=== PATIENT | male | born 1955 | race Caucasian/White ===

== ENCOUNTER 2021-12-29 22:12 | Emergency (ER) | payer MEDICARE, BC, SELFPAY ==
[2021-12-29] VITALS (18 sets, daily range): BP systolic 112–206; BP diastolic 80–135; PULSE 141–174; RESP 18; TEMP 36.9; O2SAT 93–95; BMI 42.3
[2021-12-29] MEDS: 0.9 % SODIUM CHLORIDE 1000 ml 1,000 ML IV (22:40)
--- NOTE | 2021-12-29 22:50 | ED.CHESTPAIN ---
HPI - Chest Pain General Chief Complaint: Chest Pain Stated Complaint: Chest pain, possible AFIB/flutter Time Seen by Provider: 12/29/21 22:49 History of Present Illness HPI narrative: Nurses bring me in to see Mr. Mercado more urgently due to discomfort. 66-year-old man presenting here with spouse with concern of chest pain and rapid heart rate. Pain is right in the middle of his chest. He is not short of breath. History of atrial fibrillation and a flutter; 4 RF ablations and 19 cardioversions. Since last ablation has been AFib free. This was in 2012. He is no longer on anticoagulation. Only on low-dose metoprolol for rate control he says. Had a couple glasses of wine last night but that would not be unusual. Got up about an hour and a half ago to let up the dog and noted that ?something is not right?. He is quite certain that he was not in atrial fibrillation or flutter prior to this time. Historically recalls good deal of pain typically when his heart rate goes above 140. Was in usual state of health before this began. Medical Problems: SP Ablation of Atrial Fibrillation Anti Coagulation Therapy SP Ablation of A. fib March 2013 Morbid Obesity OBSTRUCTIVE SLEEP APNEA (ADULT) (PEDIATRIC) Seasonal Allergies Atrial fibrillation Health care directive on file Health Care Directive completed on 12/06/16. Reviewed for scanning to medical record on 05/07/19. Osteoarthritis of right knee Encounter for laboratory testing for COVID-19 virus Conductive hearing loss in right ear Follow up Ear problem Hearing problem Surgical Problems: Status post total right knee replacement Status post total left knee replacement Related Data Home Medications Medication Instructions Recorded Confirmed albuterol sulfate 90 mcg/actuation inhalation 12/29/21 aerosol inhaler aspirin 81 mg capsule 81 mg PO DAILY 12/29/21 12/29/21 atorvastatin 10 mg tablet mg 12/29/21 losartan 50 mg tablet mg 12/29/21 montelukast 10 mg tablet mg 12/29/21 omeprazole 40 mg capsule,delayed mg 12/29/21 release Previous Rx's Medication Instructions Recorded apixaban 5 mg tablet 5 mg PO BID post-procedural #60 12/30/21 tabs metoprolol succinate 25 mg 25 mg PO DAILY rate control #30 12/30/21 tablet,extended release 24 hr tabs Allergies Allergy/AdvReac Type Severity Reaction Status Date / Time No Known Drug Allergies Allergy Verified 12/29/21 22:47 Review of Systems Status of ROS Reports: 10 or more systems reviewed and unremarkable except as noted in History and below PFSH PFSH Social History Smoking Status: Never smoker How often do you have a drink containing alcohol: 4 or more times a week How many standard drinks containing alcohol do you have on a typical day: 1 or 2 How often do you have six or more drinks on one occasion: Never AUDIT-C Alcohol total score: 4 Non-prescribed substance use: denies use Exam Narrative Exam Narrative: Is pleasant. Does seem uncomfortable. Winces at times. Splinting just a little bit in apparent discomfort. Cranial nerves 2-12 intact. Otherwise speaking easily. Oropharynx is a little sticky. Full in the posterior oropharynx. Lungs are clear. The chest pain is not reproducible. Skin is warm and dry. Mild lower extremity edema. Cardiovascular quite tachycardic. Irregularly irregular. Abdomen is overweight soft and nontender. Extremities with trace lower extremity dependent edema. Well perfused peripherally moving all extremities without difficulty. Initial EKG is at 169. Looks to be AFib with RVR. At this rate there is ST depression in the anterior leads. Const Vital Signs, click to edit/add: Vital Signs - 24 hr 12/29/21 22:26 12/29/21 22:30 12/29/21 23:19 Temperature 98.4 F Pulse Rate 141 H Pulse Rate [Left Pulse Oximeter] 168 H Respiratory Rate 18 Blood Pressure 136/90 H Blood Pressure [Left Upper Arm] 206/135 H Pulse Oximetry 95 95 94 Oxygen Delivery Method Room Air 12/29/21 23:20 12/29/21 23:22 12/29/21 23:25 Temperature Pulse Rate 159 H 166 H 163 H Pulse Rate [Left Pulse Oximeter] Respiratory Rate Blood Pressure 132/90 H Blood Pressure [Left Upper Arm] Pulse Oximetry 93 93 93 Oxygen Delivery Method 12/29/21 23:27 12/29/21 23:30 12/29/21 23:31 Temperature Pulse Rate 166 H 170 H Pulse Rate [Left Pulse Oximeter] Respiratory Rate Blood Pressure 121/89 127/97 H Blood Pressure [Left Upper Arm] Pulse Oximetry 93 94 93 Oxygen Delivery Method 12/29/21 23:35 12/29/21 23:37 12/29/21 23:40 Temperature Pulse Rate 168 H 174 H 165 H Pulse Rate [Left Pulse Oximeter] Respiratory Rate Blood Pressure 163/80 H Blood Pressure [Left Upper Arm] Pulse Oximetry 95 94 93 Oxygen Delivery Method 12/29/21 23:42 12/29/21 23:45 12/29/21 23:47 Temperature Pulse Rate 173 H 170 H 163 H Pulse Rate [Left Pulse Oximeter] Respiratory Rate Blood Pressure 119/97 H 112/100 H Blood Pressure [Left Upper Arm] Pulse Oximetry 93 94 94 Oxygen Delivery Method 12/29/21 23:50 12/29/21 23:55 12/29/21 23:56 Temperature Pulse Rate 149 H Pulse Rate [Left Pulse Oximeter] Respiratory Rate Blood Pressure 128/101 H Blood Pressure [Left Upper Arm] Pulse Oximetry 94 93 94 Oxygen Delivery Method 12/30/21 00:00 12/30/21 00:02 12/30/21 00:05 Temperature Pulse Rate 148 H 154 H 144 H Pulse Rate [Left Pulse Oximeter] Respiratory Rate Blood Pressure 107/86 Blood Pressure [Left Upper Arm] Pulse Oximetry 93 93 93 Oxygen Delivery Method 12/30/21 00:06 12/30/21 00:10 12/30/21 00:12 Temperature Pulse Rate 151 H 153 H 151 H Pulse Rate [Left Pulse Oximeter] Respiratory Rate Blood Pressure 122/85 118/97 H Blood Pressure [Left Upper Arm] Pulse Oximetry 93 93 93 Oxygen Delivery Method 12/30/21 00:15 12/30/21 00:17 12/30/21 00:20 Temperature Pulse Rate 158 H 153 H 151 H Pulse Rate [Left Pulse Oximeter] Respiratory Rate Blood Pressure 119/107 H Blood Pressure [Left Upper Arm] Pulse Oximetry 93 94 92 Oxygen Delivery Method 12/30/21 00:22 12/30/21 00:25 12/30/21 00:27 Temperature Pulse Rate 158 H 163 H 153 H Pulse Rate [Left Pulse Oximeter] Respiratory Rate Blood Pressure 125/91 H 113/86 Blood Pressure [Left Upper Arm] Pulse Oximetry 93 95 95 Oxygen Delivery Method 12/30/21 00:30 12/30/21 00:31 12/30/21 00:35 Temperature Pulse Rate 155 H 154 H 161 H Pulse Rate [Left Pulse Oximeter] Respiratory Rate Blood Pressure 132/112 H Blood Pressure [Left Upper Arm] Pulse Oximetry 95 94 92 Oxygen Delivery Method 12/30/21 00:36 12/30/21 00:40 12/30/21 00:41 Temperature Pulse Rate 155 H 120 H 137 H Pulse Rate [Left Pulse Oximeter] Respiratory Rate Blood Pressure 106/79 112/79 Blood Pressure [Left Upper Arm] Pulse Oximetry 91 93 91 Oxygen Delivery Method 12/30/21 00:45 12/30/21 00:46 12/30/21 00:50 Temperature Pulse Rate 151 H 126 H 130 H Pulse Rate [Left Pulse Oximeter] Respiratory Rate Blood Pressure 122/87 Blood Pressure [Left Upper Arm] Pulse Oximetry 94 93 94 Oxygen Delivery Method 12/30/21 00:52 12/30/21 00:55 12/30/21 00:56 Temperature Pulse Rate 144 H 134 H 135 H Pulse Rate [Left Pulse Oximeter] Respiratory Rate Blood Pressure 121/86 103/84 Blood Pressure [Left Upper Arm] Pulse Oximetry 94 94 94 Oxygen Delivery Method 12/30/21 01:00 12/30/21 01:01 12/30/21 01:05 Temperature Pulse Rate 149 H 150 H 145 H Pulse Rate [Left Pulse Oximeter] Respiratory Rate Blood Pressure 127/82 Blood Pressure [Left Upper Arm] Pulse Oximetry 93 93 94 Oxygen Delivery Method 12/30/21 01:06 12/30/21 01:10 12/30/21 01:21 Temperature Pulse Rate 125 H 137 H 143 H Pulse Rate [Left Pulse Oximeter] Respiratory Rate Blood Pressure 108/85 Blood Pressure [Left Upper Arm] Pulse Oximetry 93 92 94 Oxygen Delivery Method 12/30/21 01:22 12/30/21 01:25 12/30/21 01:26 Temperature Pulse Rate 151 H 135 H 143 H Pulse Rate [Left Pulse Oximeter] Respiratory Rate Blood Pressure 115/103 H 99/86 Blood Pressure [Left Upper Arm] Pulse Oximetry 94 93 93 Oxygen Delivery Method 12/30/21 01:30 12/30/21 01:32 12/30/21 01:33 Temperature Pulse Rate 136 H 128 H 136 H Pulse Rate [Left Pulse Oximeter] Respiratory Rate Blood Pressure 110/67 Blood Pressure [Left Upper Arm] Pulse Oximetry 94 95 94 Oxygen Delivery Method 12/30/21 01:35 12/30/21 01:38 12/30/21 01:40 Temperature Pulse Rate 122 H 125 H 114 H Pulse Rate [Left Pulse Oximeter] Respiratory Rate Blood Pressure 117/87 Blood Pressure [Left Upper Arm] Pulse Oximetry 95 96 95 Oxygen Delivery Method 12/30/21 01:41 12/30/21 01:51 12/30/21 01:55 Temperature Pulse Rate 136 H 144 H 147 H Pulse Rate [Left Pulse Oximeter] Respiratory Rate 12 Blood Pressure 112/92 H Blood Pressure [Left Upper Arm] Pulse Oximetry 95 94 94 Oxygen Delivery Method 12/30/21 01:57 12/30/21 02:00 12/30/21 02:01 Temperature Pulse Rate 143 H 146 H 153 H Pulse Rate [Left Pulse Oximeter] Respiratory Rate 14 17 21 Blood Pressure 114/89 114/88 Blood Pressure [Left Upper Arm] Pulse Oximetry 94 94 94 Oxygen Delivery Method 12/30/21 02:05 12/30/21 02:08 12/30/21 02:10 Temperature Pulse Rate 137 H 161 H 150 H Pulse Rate [Left Pulse Oximeter] Respiratory Rate 21 19 13 Blood Pressure 134/91 H Blood Pressure [Left Upper Arm] Pulse Oximetry 95 95 95 Oxygen Delivery Method 12/30/21 02:12 12/30/21 02:15 12/30/21 02:17 Temperature Pulse Rate 153 H 144 H Pulse Rate [Left Pulse Oximeter] Respiratory Rate 16 16 17 Blood Pressure 155/118 H 124/105 H Blood Pressure [Left Upper Arm] Pulse Oximetry 94 93 Oxygen Delivery Method 12/30/21 02:20 12/30/21 02:22 12/30/21 02:25 Temperature Pulse Rate 82 76 73 Pulse Rate [Left Pulse Oximeter] Respiratory Rate 20 20 16 Blood Pressure 142/84 H Blood Pressure [Left Upper Arm] Pulse Oximetry 94 94 93 Oxygen Delivery Method 12/30/21 02:27 12/30/21 02:30 12/30/21 02:32 Temperature Pulse Rate 72 69 67 Pulse Rate [Left Pulse Oximeter] Respiratory Rate 24 21 15 Blood Pressure 140/82 H 134/74 Blood Pressure [Left Upper Arm] Pulse Oximetry 94 93 93 Oxygen Delivery Method 12/30/21 02:35 12/30/21 02:37 12/30/21 02:40 Temperature Pulse Rate 65 66 67 Pulse Rate [Left Pulse Oximeter] Respiratory Rate 17 18 18 Blood Pressure 119/70 Blood Pressure [Left Upper Arm] Pulse Oximetry 93 92 93 Oxygen Delivery Method 12/30/21 02:41 12/30/21 02:42 12/30/21 02:45 Temperature Pulse Rate 66 64 64 Pulse Rate [Left Pulse Oximeter] Respiratory Rate 19 20 21 Blood Pressure 131/77 Blood Pressure [Left Upper Arm] Pulse Oximetry 92 92 92 Oxygen Delivery Method 12/30/21 02:47 12/30/21 02:50 12/30/21 02:51 Temperature Pulse Rate 65 65 68 Pulse Rate [Left Pulse Oximeter] Respiratory Rate 19 19 20 Blood Pressure 119/72 128/73 Blood Pressure [Left Upper Arm] Pulse Oximetry 93 93 94 Oxygen Delivery Method 12/30/21 02:55 12/30/21 02:57 12/30/21 03:00 Temperature Pulse Rate 68 66 65 Pulse Rate [Left Pulse Oximeter] Respiratory Rate 15 18 18 Blood Pressure 128/74 Blood Pressure [Left Upper Arm] Pulse Oximetry 94 93 94 Oxygen Delivery Method 12/30/21 03:02 12/30/21 03:05 12/30/21 03:07 Temperature Pulse Rate 64 64 65 Pulse Rate [Left Pulse Oximeter] Respiratory Rate 19 19 17 Blood Pressure 120/71 111/71 Blood Pressure [Left Upper Arm] Pulse Oximetry 93 93 94 Oxygen Delivery Method 12/30/21 03:10 12/30/21 03:12 12/30/21 03:15 Temperature Pulse Rate 64 64 63 Pulse Rate [Left Pulse Oximeter] Respiratory Rate 20 18 20 Blood Pressure 128/69 Blood Pressure [Left Upper Arm] Pulse Oximetry 93 95 94 Oxygen Delivery Method 12/30/21 03:17 12/30/21 03:20 12/30/21 03:22 Temperature Pulse Rate 62 62 63 Pulse Rate [Left Pulse Oximeter] Respiratory Rate 21 18 19 Blood Pressure 115/65 127/72 Blood Pressure [Left Upper Arm] Pulse Oximetry 94 94 93 Oxygen Delivery Method 12/30/21 03:25 12/30/21 03:27 12/30/21 03:30 Temperature Pulse Rate 61 60 61 Pulse Rate [Left Pulse Oximeter] Respiratory Rate 20 19 18 Blood Pressure 125/69 Blood Pressure [Left Upper Arm] Pulse Oximetry 94 93 95 Oxygen Delivery Method 12/30/21 03:32 12/30/21 03:35 12/30/21 03:36 Temperature Pulse Rate 63 64 65 Pulse Rate [Left Pulse Oximeter] Respiratory Rate 14 21 Blood Pressure 123/65 137/80 Blood Pressure [Left Upper Arm] Pulse Oximetry 95 96 96 Oxygen Delivery Method 12/30/21 03:40 12/30/21 03:42 12/30/21 03:45 Temperature Pulse Rate 65 64 65 Pulse Rate [Left Pulse Oximeter] Respiratory Rate 17 21 24 Blood Pressure 144/77 H Blood Pressure [Left Upper Arm] Pulse Oximetry 96 96 96 Oxygen Delivery Method 12/30/21 03:47 12/30/21 03:50 12/30/21 03:52 Temperature Pulse Rate 66 68 66 Pulse Rate [Left Pulse Oximeter] Respiratory Rate 21 21 18 Blood Pressure 133/82 140/84 H Blood Pressure [Left Upper Arm] Pulse Oximetry 96 96 96 Oxygen Delivery Method 12/30/21 03:55 12/30/21 03:57 12/30/21 04:00 Temperature Pulse Rate 63 62 61 Pulse Rate [Left Pulse Oximeter] Respiratory Rate 18 23 25 H Blood Pressure 127/67 Blood Pressure [Left Upper Arm] Pulse Oximetry 96 95 95 Oxygen Delivery Method 12/30/21 04:02 12/30/21 04:05 12/30/21 04:07 Temperature Pulse Rate 62 61 57 L Pulse Rate [Left Pulse Oximeter] Respiratory Rate 24 21 22 Blood Pressure 130/81 126/69 Blood Pressure [Left Upper Arm] Pulse Oximetry 94 95 95 Oxygen Delivery Method 12/30/21 04:10 12/30/21 04:12 Temperature Pulse Rate 58 L 59 L Pulse Rate [Left Pulse Oximeter] Respiratory Rate 20 15 Blood Pressure 130/74 Blood Pressure [Left Upper Arm] Pulse Oximetry 95 96 Oxygen Delivery Method Documenting provider has reviewed patient's vital signs: yes Course Course Hospital Course: Will be initiating fluids and rate control. Morphine available if needed for further pain management. Monitoring on oximetry and ekg monitor. Reevaluation(s) Reevaluation #1: Heart rate discomfort not improved with initial fluid bolus and IV diltiazem. Morphine does little to alleviate his discomfort. Ordering for 50 mcg of fentanyl. Reevaluation #2: Pain much improved though still present after fentanyl. Is appreciably sleepy. Heart rate is still rather tachycardic. Ordering metoprolol as well. Vital Signs Vital signs: Initial Vital Signs Temperature 98.4 F 12/29/21 22:26 Temperature Source Temporal Artery Scan 12/29/21 22:26 Pulse Rate 168 H 12/29/21 22:26 Respiratory Rate 18 09/14/22 22:26 Blood Pressure 206/135 H 12/29/21 22:26 Blood Pressure Mean 158 12/29/21 22:26 Blood Pressure Position Supine 12/29/21 22:26 Pulse Oximetry 95 12/29/21 22:26 Oxygen Delivery Method 12/29/21 22:26 Vital Signs Temperature 98.4 F 12/29/21 22:26 Pulse Rate 168 H 12/29/21 22:26 Respiratory Rate 18 12/29/21 22:26 Blood Pressure 206/135 H 12/29/21 22:26 Pulse Oximetry 95 12/29/21 22:26 Oxygen Delivery Method 12/29/21 22:26 Temperature 98.4 F 12/29/21 22:26 Pulse Rate 59 L 12/30/21 04:12 Respiratory Rate 15 12/30/21 04:12 Blood Pressure 130/74 12/30/21 04:12 Pulse Oximetry 96 12/30/21 04:12 Oxygen Delivery Method 12/29/21 22:26 MDM - Chest Pain MDM Narrative Medical decision making narrative: AFib with RVR and related chest pain. EKG with some ischemic depression in the anterior leads Attempting fluids and rate control. Likely will need electrical cardioversion. See if with rate control and fluids morphine all to relieve some discomfort. Replacing magnesium noting low-normal in anticipation of cardioversion. And then contacting anesthesia once this infusion would be nearly complete for assistance with sedation at this time of night. Chemistry is otherwise with elevated blood sugar. Normal hemoglobin and proBNP. Received IV fluids, attempts at rate control with diltiazem and metoprolol have not affected heart rate noticeably. Without fentanyl I would suspect still in good deal of discomfort. At rest oxygen saturations do dip below 90 % I think representing combination of fentanyl and sleep apnea. Anesthesia not able to assist with sedation at this point as Mr. Mercado had some food ingestion now about 3 hours ago; requiring 8 hours without ingestion. Suggestion of blood bank laboratory technologist level of sedation and synchronized cardioversion. Postponing conversion another 5 hours for cardioversion in this case I think is really not ideal. Consulting organizational policies and/though am anticipating moderate sedation for cardioversion. I am hesitant to give higher doses in setting of sleep apnea. I have discussed anticoagulation with Mr Mercado. Only a few hours of atrial fibrillation; did not anticoagulate preprocedure. Does take 81 mg of aspirin daily. Will be providing singular post-procedural dose of Apixaban and clarify with cardiology for further recommendations yet this morning. On Chads Vasc 2 scores 2. Medical Records Data Attestation: I reviewed the patient's medical records. Lab Data Attestation: I reviewed the patient's lab results. Labs: Lab Results 12/29/21 12/29/21 Range/Units 22:38 22:38 Hgb 15.8 (13.5-17.5) gm/dL Sodium 143 (135-149) mmol/L Potassium 3.9 (3.6-5.1) mmol/L Chloride 105 (96-114) mmol/L Carbon Dioxide 19 L (20-32) mmol/L BUN 17 (7-30) mg/dL Creatinine 0.9 (0.5-1.5) mg/dL Estimated Creat Clear 73.00 Estimated GFR 93 ml/min Glucose 175 H (60-115) mg/dL Calcium 9.1 (8.4-10.6) mg/dL Magnesium 1.9 (1.5-2.6) mg/dL NT-Pro-B Natriuret Pep 59 (0-125) PG/mL ECG Data Attestation: I personally reviewed and interpreted this ECG as follows: (1. AFib with RVR. ST depression in anterior leads. 2. Following synced cardioversion normal sinus rate of 69. No ischemic changes evident. ) Critical Care Time Critical Care Time Critical Care Time: Yes Attestation: The patient required my highest level preparedness to intervene emergently and I personally spent this critical care time directly and personally managing the patient. This critical care time included: Obtaining a history; Examining the patient; Pulse oximetry; Ordering and reviewing of studies; Arranging urgent treatment with development of a management plan; Evaluation of patients response to treatment; Frequent reassessment discussions with other providers. This critical care time was performed to assess and manage the high probability of imminent life-threatening deterioration that could result in multiorgan failure. It was exclusive of separate billable procedures and treating other patients and teaching time. Total Critical Care Time in Minutes: 80 Discharge Plan Discharge Clinical Impression: Chest pain, Atrial fibrillation with rapid ventricular response Patient Disposition: Home w/ Parent or Adult Condition: Improved Additional Instructions: Stay well hydrated. Return for recurrence of symptoms. I would check in with [facility] during business hours today; probably time for a follow-up. I also will call them to confirm treatment recommendations and then relay information to you. I would take another dose of your metoprolol tartrate this morning sometime between when you get back home and breakfast; take this if your pulse is 65 or over. Been a pleasure. Prescriptions: New metoprolol succinate 25 mg tablet extended release 24 hr 25 mg PO DAILY Qty: 30 0RF apixaban 5 mg tablet 5 mg PO BID Qty: 60 0RF Held aspirin 81 mg capsule 81 mg PO DAILY Hold Instructions: Resume on 01/29/22. hold while taking apixaban and pending cardiology recommendations Discontinued metoprolol tartrate 25 mg tablet No Action losartan 50 mg tablet Label Comments: TAKE 1 TABLET BY MOUTH EVERY DAY AT BEDTIME atorvastatin 10 mg tablet Label Comments: TAKE 1 TABLET BY MOUTH DAILY AT BEDTIME. omeprazole 40 mg capsule,delayed release(DR/EC) Label Comments: TAKE 1 CAPSULE BY MOUTH EVERY DAY montelukast 10 mg tablet Label Comments: TAKE 1 TABLET BY MOUTH EVERY DAY AT BEDTIME NEEDED albuterol sulfate 90 mcg/actuation HFA aerosol inhaler INHALATION Label Comments: INHALE 2 PUFFS EVERY 4 HOURS NEEDED Follow Up/Referrals: eBltran Tran MD [Primary Care Provider] - Stand Alone Forms: [employer] Info Instructions Discharge Comment: Able to follow up with Cardiology later in the morning who are indeed recommending continuing with apixaban for 4 weeks. Discontinuing low-dose aspirin at this point. And changing to sustained release metoprolol. Contacting Mr. Mercado with these recommendations. Procedures Additional Procedures Procedure name: Electrical cardioversion Pre procedure diagnosis: Atrial fibrillation with rapid ventricular response Post procedure diagnosis: Atrial fibrillation with rapid ventricular response Written consent by: patient Site marking: not applicable Verification/time out: correct patient and correct procedure Estimated blood loss (if any): none Conclusion: patient tolerated procedure (see below) Additional comments: Assisted by Nursing. Informed consent obtained. Given initially 1 mg and then another 0.5 mg of Versed as well as 25 mcg followed by another 25 mcg of fentanyl. Mr. Velarde appears to be much more sleepy closing his eyes. Synchronized 200 joules and shock delivered. Clearly he felt this ?stinging?; tolerated the procedure well. Rhythm has returned to normal sinus. EKG confirming normal sinus rhythm at a rate of 69 without ischemic changes. Continued monitoring. Finally fully alert and comfortable. Looks quite improved. Rhythm holding. Moderate Sedation Pre Sedation Procedure Procedure date: 12/30/21 Procedure to be performed: Moderate sedation and electrical cardioversion Pre-procedure diagnosis: Atrial fibrillation with rapid ventricular response Indication for procedure: Chest pain and EKG changes, atrial fibrillation with RVR H&P Attestation An H&P has been documented and completed during this visit: Yes Pre Sedation Exam ASA Class: II (Hypertension, sleep apnea, reactive airway) General appearance: alert and in distress (Appears uncomfortable. Improved after pain medication.) HEENT: PERRL Difficulty swallowing: No Airway status: opens mouth no difficulty Cardiovascular: other (Irregularly irregular and tachycardic) Respiratory: clear to auscultation Nursing documentation reviewed: Yes Medications used: Fentanyl and Midazolam Post Sedation Exam Post-sedation procedure comments: 200 J delivered. Tolerated well though did report feeling the shock. Post-sedation attestation: I administered moderate sedation throughout procedure, independent trained observer pushed medications at my direction and patient's level of consciousness and physiological status monitored
[2021-12-29] MEDS: MORPHINE 4 MG/ML INJ IVP (22:58)
[2021-12-29 23:01] LABS: Hemoglobin* 15.8 gm/dL (13.5-17.5)
[2021-12-29] MEDS: dilTIAZem 5 MG/ML inj 25 MG IVP (23:01)
[2021-12-29 23:03] LABS: Chloride* 105 mmol/L (96-114)
[2021-12-29 23:04] LABS: Potassium* 3.9 mmol/L (3.6-5.1); Sodium* 143 mmol/L (135-149)
[2021-12-29 23:07] LABS: Blood Urea Nitrogen* 17 mg/dL (7-30); Carbon Dioxide* 19 mmol/L (20-32); Creatinine* 0.9 mg/dL (0.5-1.5); Estimated Glomerular Filt Rate 93 ml/min; Glucose* 175 mg/dL (60-115)
[2021-12-29 23:08] LABS: Calcium* 9.1 mg/dL (8.4-10.6); Magnesium* 1.9 mg/dL (1.5-2.6)
[2021-12-29 23:16] LABS: NT Pro B Type NatriureticPept* 59 PG/mL (0-125)
[2021-12-29] MEDS: MAGNESIUM SULFATE 2 GM/50 ML PIGGYBACK IVPB (23:33)
[2021-12-30] VITALS (98 sets, daily range): BP systolic 99–155; BP diastolic 65–118; PULSE 57–163; RESP 12–25; O2SAT 91–96
[2021-12-30] MEDS: fentaNYL 100 MCG/2 ML inj 50 MCG IVP (00:30)
[2021-12-30] MEDS: METOPROLOL TARTRATE 1 MG/ML inj 5 MG IVP (00:31)
[2021-12-30] MEDS: 0.9 % SODIUM CHLORIDE 1000 ml 1,000 ML IV (02:00)
[2021-12-30] MEDS: fentaNYL 100 MCG/2 ML inj 25 MCG IVP ×2 (02:08→02:14)
[2021-12-30] MEDS: MIDAZOLAM HCL 1 MG/ML inj IVP (02:10)
[2021-12-30] MEDS: MIDAZOLAM HCL 1 MG/ML inj 0.5 MG IVP (02:12)
[2021-12-30] MEDS: APIXABAN 5 MG TABLET PO (04:11)
== END 2021-12-30 04:31 | disposition home or self-care (01) ==
PROVIDERS: Emergency Provider Family Medicine; PCP Internal Medicine
DX: I48.20 Chronic atrial fibrillation, unspecified (principal)
CPT/HCPCS: 36415; 80048; 83735; 83880; 85018; 92960; 93005; 94761; 96365; 96375; 96376; 99152; 99284; 99291; 99292; A9270; J2250; J2270; J3010; J3475; J7030

== ENCOUNTER 2022-04-14 23:28 | Emergency (ER) | payer MEDICARE, BC, SELFPAY ==
[2022-04-14 23:33] VITALS: BP 172/139; PULSE 163; RESP 20; TEMP 36.3; O2SAT 98; BMI 41.6
[2022-04-14 23:42] VITALS: BP 172/139
[2022-04-15] VITALS (29 sets, daily range): BP systolic 118–160; BP diastolic 74–122; PULSE 81–167; RESP 10–33; TEMP 36.7; O2SAT 95–98
[2022-04-15] MEDS: PROPOFOL 10 MG/ML INJ 200 MG IVP (00:15)
[2022-04-15] MEDS: 0.9 % SODIUM CHLORIDE 500 ML 500 ML IV (00:15)
[2022-04-15 00:17] LABS: Basophils Absolute Auto 0.03 K/uL (0.00-0.30); Basophils Percent Auto 0.5 % (0.0-3.0); Eosinophils Absolute Auto 0.23 K/uL (0.00-0.50); Eosinophils Percent Auto 4.1 % (0.0-7.0); Hematocrit 45.7 % (37.0-53.0); Hemoglobin* 15.3 gm/dL (13.5-17.5); Immature Granulocytes Abs Auto 0.04 K/uL (0.00-0.30); Immature Granulocytes Pct Auto 0.7 %; Lymphocytes Absolute Auto 1.69 K/uL (0.90-2.90); Lymphocytes Percent Auto 29.9 % (20-44); Mean Corpuscular HGB Conc 34 gm/dL (32-36); Mean Corpuscular Hemoglobin 29 pg (26-34); Mean Corpuscular Volume 86 fL (80-100); Monocytes Percent Auto 11.3 % (0.0-11.0); Neutrophils Absolute Auto 3.02 K/uL (1.7-7.0); Neutrophils Percent Auto 53.5 % (42.0-72.0); Platelet Count* 184 K/uL (140-440); RDW Coefficient of Variation % 13.1 % (11.5-15.5); Red Blood Count 5.31 m/uL (4.30-5.90); White Blood Count* 5.65 K/uL (4.50-11.00)
[2022-04-15 00:18] LABS: Slide Review Reflex No
--- NOTE | 2022-04-15 00:23 | W.ED.CHARTNO ---
ED Chart Note Chart Note Details Date: 04/15/22 Details: Patient is a 66-year-old gentleman that is in with atrial fibrillation with rapid ventricular response and some chest discomfort. Dr. Waller is the primary attending and has asked me to provide anesthesia and airway support well he does a synchronized cardioversion. Patient has been consented on the synchronized cardioversion, the conscious sedation. Appropriate cardiac monitoring, pulse oximetry and supplemental nasal cannula oxygen with capnography were used for monitoring. Appropriate patient was given 150 mg IV propofol fall, had good sedation with that. He had some immediate hypo ventilation that responded with jaw thrust and switching to non-rebreather mask oxygen. This was maintained for few minutes inpatient had spontaneous recovery from his anesthesia. Patient did respond to the 200 joules of synchronized cardioversion with conversion to sinus rhythm, please see Dr. Waller's note for the cardioversion procedure.
[2022-04-15 00:48] LABS: Chloride* 110 mmol/L (96-114); Sodium* 145 mmol/L (135-149)
[2022-04-15 00:49] LABS: Potassium* 3.8 mmol/L (3.6-5.1)
[2022-04-15 00:51] LABS: Creatinine* 0.8 mg/dL (0.5-1.5); Estimated Glomerular Filt Rate 96 ml/min
[2022-04-15 00:52] LABS: Blood Urea Nitrogen* 18 mg/dL (7-30); Calcium* 9.2 mg/dL (8.4-10.6); Carbon Dioxide* 21 mmol/L (20-32); Glucose* 159 mg/dL (60-115)
--- NOTE | 2022-04-15 00:52 | ED.GENADULT ---
HPI - General Adult General Date Seen: 04/15/22 Chief complaint: Chest Pain Stated complaint: Afib Time Seen by Provider: 04/15/22 00:01 Source: patient and family Mode of arrival: wheelchair Limitations: no limitations History of Present Illness HPI narrative: Patient is a 66-year-old male with a long history of atrial fibrillation. He has had for ablation procedures at [place] and 20 cardioversions, most recently in December. He is chronically on aspirin but no other anticoagulation. Takes Toprol-XL 25 mg daily for rate control and losartan 50 mg daily for hypertension. Tonight at about 10:00 p.m. he felt himself flip into atrial fibrillation with a rapid rate. He began having some chest pain and shortness of breath and presents emergency department within about 90 minutes. He last ate 4 hours ago. His last cardioversion was done with fentanyl and Versed and he remembers the entire thing in his certainly hoping that we have better anesthesia to offer him this time. Related Data Home Medications Medication Instructions Recorded Confirmed albuterol sulfate 90 mcg/actuation inhalation 12/29/21 01/19/22 aerosol inhaler montelukast 10 mg tablet mg 12/29/21 01/19/22 Previous Rx's Medication Instructions Recorded atorvastatin 10 mg tablet 10 mg PO .HS Hyperlipidemia #90 01/19/22 tabs losartan 50 mg tablet 50 mg PO QDAY Hypertension #90 tabs 01/19/22 metoprolol succinate 25 mg 25 mg PO DAILY rate control #90 01/19/22 tablet,extended release 24 hr tabs omeprazole 40 mg capsule,delayed 40 mg PO QDAY GERD #90 caps 01/19/22 release Allergies Allergy/AdvReac Type Severity Reaction Status Date / Time No Known Drug Allergies Allergy Verified 04/14/22 23:52 Review of Systems Narrative: Review of systems is outlined above otherwise noted to be negative. He states that he can always tell when he goes in atrial fibrillation. He was on Eliquis for a month after his last cardioversion and is now just back on aspirin again. He has not seen his quality assurance director in about two years. PCP is Dr. Tran. [facility] Medical History (Updated 04/15/22 @ 00:59 by Rafael Waller MD) GERD (gastroesophageal reflux disease) Hypertension Surgical History (Updated 01/18/22 @ 17:39 by Yany Dye) Status post total left knee replacement Status post total right knee replacement Social History Smoking Status: Never smoker Do you use any of these nicotine containing products: None Second hand tobacco smoke exposure: No How often do you have a drink containing alcohol: 4 or more times a week How many standard drinks containing alcohol do you have on a typical day: 1 or 2 How often do you have six or more drinks on one occasion: Never AUDIT-C Alcohol total score: 4 Non-prescribed substance use: denies use Exam Narrative: Exam Narrative: Vitals noted. HEENT: Conjunctiva clear. Neck is supple without adenopathy, thyromegaly, carotid bruit. No jugular venous distension. Lungs: Clear to auscultation in all otero. No wheezes, rales, rhonchi. Heart: Heart is irregularly irregular and tachycardic. No murmur. No chest wall tenderness. Abdomen: Soft and nontender. No guarding, rigidity, rebound. Bowel sounds are normal. No palpable masses. Extremities: Trace ankle edema. Good distal pulses. Skin: No abnormalities noted of the exposed skin. Neurologic: Awake, alert, fully oriented. Neurologic exam is nonfocal. Const: Vital Signs, click to edit/add: Vital Signs - 24 hr 04/14/22 23:33 04/14/22 23:42 04/15/22 00:10 Temperature 97.3 F L Pulse Rate Pulse Rate [Pulse Oximeter] 163 H Respiratory Rate 20 Blood Pressure 172/139 H Blood Pressure [Le ft Upper Arm] 172/139 H Pulse Oximetry 98 98 Oxygen Delivery Me thod Room Air Oxygen Flow Rate 04/15/22 00:12 04/15/22 00:11 04/15/22 00:15 Temperature Pulse Rate 152 H Pulse Rate [Pulse Oximeter] Respiratory Rate Blood Pressure 144/122 H Blood Pressure [Le ft Upper Arm] Pulse Oximetry 95 96 Oxygen Delivery Me thod Nasal Cannula Nasal Cannula Oxygen Flow Rate 2 4 04/15/22 00:17 04/15/22 00:20 04/15/22 00:22 Temperature Pulse Rate 167 H 95 93 Pulse Rate [Pulse Oximeter] Respiratory Rate 24 27 H 21 Blood Pressure 160/109 H 143/82 H Blood Pressure [Le ft Upper Arm] Pulse Oximetry 97 95 98 Oxygen Delivery Me thod Oxygen Flow Rate 04/15/22 00:25 04/15/22 00:27 04/15/22 00:28 Temperature Pulse Rate 90 90 87 Pulse Rate [Pulse Oximeter] Respiratory Rate 21 33 H 14 Blood Pressure 125/77 Blood Pressure [Le ft Upper Arm] Pulse Oximetry 98 96 96 Oxygen Delivery Me thod Oxygen Flow Rate 04/15/22 00:30 04/15/22 00:31 04/15/22 00:35 Temperature Pulse Rate 85 86 85 Pulse Rate [Pulse Oximeter] Respiratory Rate 19 12 20 Blood Pressure 123/77 Blood Pressure [Le ft Upper Arm] Pulse Oximetry 95 96 95 Oxygen Delivery Me thod Oxygen Flow Rate 04/15/22 00:36 04/15/22 00:40 04/15/22 00:42 Temperature Pulse Rate 86 85 84 Pulse Rate [Pulse Oximeter] Respiratory Rate 10 L 21 25 H Blood Pressure 132/77 125/78 Blood Pressure [Le ft Upper Arm] Pulse Oximetry 96 95 97 Oxygen Delivery Me thod Oxygen Flow Rate 04/15/22 00:49 04/15/22 00:43 04/15/22 00:45 Temperature 98.0 F Pulse Rate 82 83 Pulse Rate [Pulse Oximeter] 84 Respiratory Rate 19 13 17 Blood Pressure 125/74 132/74 Blood Pressure [Le ft Upper Arm] 128/77 Pulse Oximetry 96 96 95 Oxygen Delivery Me thod Nasal Cannula Oxygen Flow Rate 2 04/15/22 00:47 04/15/22 01:24 04/15/22 00:48 Temperature 98.0 F Pulse Rate 81 81 Pulse Rate [Pulse Oximeter] 84 Respiratory Rate 19 16 18 Blood Pressure 128/77 145/78 H Blood Pressure [Le ft Upper Arm] 128/77 Pulse Oximetry 96 97 95 Oxygen Delivery Me thod Room Air Oxygen Flow Rate 04/15/22 00:52 04/15/22 00:57 04/15/22 01:01 Temperature Pulse Rate 83 83 84 Pulse Rate [Pulse Oximeter] Respiratory Rate 17 22 19 Blood Pressure 138/76 118/79 130/87 Blood Pressure [Le ft Upper Arm] Pulse Oximetry 96 95 97 Oxygen Delivery Me thod Oxygen Flow Rate 04/15/22 01:07 04/15/22 01:12 04/15/22 01:17 Temperature Pulse Rate 81 86 82 Pulse Rate [Pulse Oximeter] Respiratory Rate 21 24 12 Blood Pressure 134/80 146/86 H 144/78 H Blood Pressure [Le ft Upper Arm] Pulse Oximetry 96 97 97 Oxygen Delivery Me thod Oxygen Flow Rate 04/15/22 01:27 Temperature 98.0 F Pulse Rate Pulse Rate [Pulse Oximeter] 84 Respiratory Rate 16 Blood Pressure Blood Pressure [Le ft Upper Arm] 128/77 Pulse Oximetry Oxygen Delivery Me thod Oxygen Flow Rate Course Course Hospital Course: Initial EKG shows atrial fibrillation with a rate of 157. There are diffuse [address] depressions. IV is established and 500 mL of saline his given. Oxygen is applied. He is felt to be unstable because he is currently having chest pains and shortness of breath and we opted to proceed with emergent cardioversion. It was change of shift and Dr. Nj was still here and agreed to stay and provide anesthesia for his synchronized cardioversion procedure. Following informed consent oxygen is applied by nasal cannula and cardioversion patches are placed anteriorly and posteriorly. He is given 150 mg of propofol. Following excellent anesthesia he received 200 joules via synchronized cardioversion and return to normal sinus rhythm with a rate of 95. His ST depressions resolved. He has known obstructive sleep apnea and did require jaw thrust and oxygen for short time. He is observed for over an hour postprocedure and remained in sinus rhythm that was rate controlled. Labs including CBC, BMP, troponin were all unremarkable. His chest pain shortness of breath completely resolved. Vital Signs Vital signs: Initial Vital Signs Temperature 97.3 F L 04/14/22 23:33 Temperature Source Temporal Artery Scan 04/14/22 23:33 Pulse Rate 163 H 04/14/22 23:33 Pulse Rhythm 04/14/22 23:33 Respiratory Rate 20 04/14/22 23:33 Blood Pressure 172/139 H 04/14/22 23:33 Blood Pressure Mean 150 04/14/22 23:33 Blood Pressure Position Supine 04/14/22 23:33 Pulse Oximetry 98 04/14/22 23:33 Oxygen Delivery Method 04/14/22 23:33 Vital Signs Temperature 97.3 F L 04/14/22 23:33 Pulse Rate 163 H 04/14/22 23:33 Respiratory Rate 20 04/14/22 23:33 Blood Pressure 172/139 H 04/14/22 23:33 Pulse Oximetry 98 04/14/22 23:33 Oxygen Delivery Method 04/14/22 23:33 Temperature 98.0 F 04/15/22 01:27 Pulse Rate 84 12/30/22 01:27 Respiratory Rate 16 04/15/22 01:27 Blood Pressure 128/77 04/15/22 01:27 Pulse Oximetry 97 04/15/22 01:24 Oxygen Delivery Method 04/15/22 01:24 Oxygen Flow Rate 2 04/15/22 00:49 Medical Decision Making Lab Data Labs: Lab Results 04/15/22 04/15/22 04/15/22 Range/Units 00:00 00:00 00:00 WBC 5.65 (4.50-11.00) K/uL RBC 5.31 (4.30-5.90) m/uL Hgb 15.3 (13.5-17.5) gm/dL Hct 45.7 (37.0-53.0) % MCV 86 (80-100) fL MCH 29 (26-34) pg MCHC 34 (32-36) gm/dL RDW Coeff of Carlos 13.1 (11.5-15.5) % Plt Count 184 (140-440) K/uL Neut % (Auto) 53.5 (42.0-72.0) % Lymph % (Auto) 29.9 (20-44) % Lamb % (Auto) 11.3 H (0.0-11.0) % Eos % (Auto) 4.1 (0.0-7.0) % Baso % (Auto) 0.5 (0.0-3.0) % Neut # (Auto) 3.02 (1.7-7.0) K/uL Lymph # (Auto) 1.69 (0.90-2.90) K/uL Lamb # (Auto) 0.60 (0.00-0.90) K/UL Eos # (Auto) 0.23 (0.00-0.50) K/uL Baso # (Auto) 0.03 (0.00-0.30) K/uL Sodium 145 (135-149) mmol/L Potassium 3.8 (3.6-5.1) mmol/L Chloride 110 (96-114) mmol/L Carbon Dioxide 21 (20-32) mmol/L BUN 18 (7-30) mg/dL Creatinine 0.8 (0.5-1.5) mg/dL Estimated Creat Clear 73.00 Estimated GFR 96 ml/min Glucose 159 H (60-115) mg/dL Calcium 9.2 (8.4-10.6) mg/dL Troponin I < 0.01 L (0.01-0.04) ng/mL POC Troponin I 0.00 L (0.01-0.04) ng/ml Discharge Plan Discharge Clinical Impression: Atrial fibrillation with RVR Patient Disposition: Home, Self-Care Condition: Improved Additional Instructions: Continue current meds. Follow up with Dr Tran in 3-5 days. Schedule appt with your Freight Tallier. Return to ED for recurrent problems. Prescriptions: No Action metoprolol succinate 25 mg tablet extended release 24 hr 25 mg PO DAILY Qty: 90 3RF atorvastatin 10 mg tablet 10 mg PO .HS Qty: 90 4RF Label Comments: TAKE 1 TABLET BY MOUTH DAILY AT BEDTIME. omeprazole 40 mg capsule,delayed release(DR/EC) 40 mg PO QDAY Qty: 90 3RF losartan 50 mg tablet 50 mg PO QDAY Qty: 90 3RF montelukast 10 mg tablet Label Comments: TAKE 1 TABLET BY MOUTH EVERY DAY AT BEDTIME NEEDED albuterol sulfate 90 mcg/actuation HFA aerosol inhaler INHALATION Label Comments: INHALE 2 PUFFS EVERY 4 HOURS NEEDED Follow Up/Referrals: Beltran Tran MD [Primary Care Provider] - Stand Alone Forms: [employer] Info Instructions
[2022-04-15 01:09] LABS: Troponin I* < 0.01 ng/mL (0.01-0.04)
== END 2022-04-15 01:33 | disposition home or self-care (01) ==
PROVIDERS: Emergency Provider Family Medicine; PCP Internal Medicine
DX: I48.91 Unspecified atrial fibrillation (principal)
CPT/HCPCS: 36415; 80048; 84484; 85025; 92960; 93005; 94761; 96361; 96374; 99284; 99291; J2704; J7120

== ENCOUNTER 2022-06-27 21:32 | Emergency (ER) | payer MEDICARE, BC, SELFPAY ==
[2022-06-27 21:42] VITALS: BP 174/105; PULSE 166; RESP 24; TEMP 37; O2SAT 96; BMI 41.0
--- NOTE | 2022-06-27 21:49 | ED.GENADULT ---
HPI - General Adult General Time Seen by Provider: 21:49 Date Seen: 06/27/22 Chief complaint: Arrhythmia/Palpitations Stated complaint: Afib Time Seen by Provider: 06/27/22 21:49 Source: patient and RN notes reviewed Mode of arrival: ambulatory Limitations: no limitations History of Present Illness HPI narrative: Patient is a 66-year-old male coming in with complaint of rapid heartbeat with underlying history of atrial fibrillation with RVR. He notes about to he went in this without any precipitating events. He ate dinner about 7:00 p.m. 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 Denies any symptoms of illness, does endorse chest pain that goes into his arm. It is a pressure when he has this. He has had it before. He is scheduled to see Cardiology at [place] but it is not for another few weeks if I remember him correctly. He has been cardioverted multiple times, most frequently here on 04/15/2022 with myself in attendance. In December he was cardioverted as well. I did review his records from this past March and he received 150 mg IV propofol fall and 200 joules for the cardioversion. He is not short of breath. He absolutely feels when he goes in this. He is on a low-dose oral beta-pato. Related Data Home Medications Medication Instructions Recorded Confirmed flaxseed oil 1,000 mg capsule 1,000 mg PO QDAY 05/24/22 06/20/22 omega 6-zho-ait-fish oil 100 cap PO 05/24/22 06/20/22 mg-160 mg-1,000 mg capsule (Fish Oil) vitamin E (dl, acetate) 45 mg (100 45 mg PO QDAY 05/24/22 06/20/22 unit) capsule aspirin 81 mg tablet,delayed 81 mg PO QDAY 06/20/22 06/20/22 release (Adult Low Dose Aspirin) fluticasone propionate 110 1 inhalation BID 06/20/22 06/20/22 mcg/actuation HFA aerosol inhaler Previous Rx's Medication Instructions Recorded lorazepam 0.5 mg tablet 0.5 mg PO QDAY PRN anxiety #10 tabs 04/19/22 albuterol sulfate 90 mcg/actuation 2 puff inhalation Q4H PRN 04/26/22 aerosol inhaler shortness of breath or wheezing #8.5 grams atorvastatin 10 mg tablet 10 mg PO .HS Hyperlipidemia #90 04/26/22 tabs losartan 100 mg tablet 100 mg PO QDAY Hypertension #30 04/26/22 tabs metoprolol succinate 25 mg 25 mg PO DAILY rate control #90 04/26/22 tablet,extended release 24 hr tabs montelukast 10 mg tablet 10 mg PO QDAY Asthma #90 tabs 04/26/22 omeprazole 40 mg capsule,delayed 40 mg PO QDAY GERD #90 caps 04/26/22 release hydrochlorothiazide 12.5 mg tablet 12.5 mg PO QAM Hypertension #30 05/24/22 tabs apixaban 5 mg tablet (Eliquis) 5 mg PO BID #60 tabs 06/27/22 magnesium oxide 400 mg (241.3 mg 400 mg PO DAILY #30 tabs 06/27/22 magnesium) tablet Allergies Allergy/AdvReac Type Severity Reaction Status Date / Time No Known Drug Allergies Allergy Verified 06/20/22 08:56 [facility] Medical History (Updated 06/27/22 @ 23:05 by Donna Pace MD) Asthma GERD (gastroesophageal reflux disease) Hypertension Surgical History (Updated 01/18/22 @ 17:39 by Yany Dye) Status post total left knee replacement Status post total right knee replacement Social History Smoking Status: Former smoker Do you use any of these nicotine containing products: None Second hand tobacco smoke exposure: No How often do you have a drink containing alcohol: 4 or more times a week How many standard drinks containing alcohol do you have on a typical day: 1 or 2 How often do you have six or more drinks on one occasion: Never AUDIT-C Alcohol total score: 4 Non-prescribed substance use: denies use Little interest or pleasure in doing things: not at all Feeling down, depressed, or hopeless: not at all Exam Const: Vital Signs, click to edit/add: Vital Signs - 24 hr 06/27/22 21:42 06/27/22 21:56 Temperature 98.6 F Pulse Rate [Pulse Oximeter] 166 H Respiratory Rate 24 Blood Pressure [Le ft Upper Arm] 174/105 H Pulse Oximetry 96 96 Oxygen Delivery Me thod Room Air Documenting provider has reviewed patient's vital signs: yes Common normals: no apparent distress, oriented x3, no limitations, healthy appearing, alert and well nourished General appearance: cooperative, comfortable, well kempt and well developed HENMT: Common normals: normocephalic, head/scalp atraumatic, hearing grossly normal bilaterally, external ears normal and external nose normal Head and scalp: normocephalic and atraumatic Nose: external nose normal External ear: external ears normal Eye: Common normals: PERRL, EOMs intact bilaterally, conjunctivae normal and no scleral icterus Conjunctiva: conjunctiva(e) normal Pupil: PERRL Neck & C-Spine: Common normals: full ROM, no lymphadenopathy, supple, no meningeal signs, no JVD and thyroid normal Thyroid: thyroid normal Resp: Common normals: normal respiratory effort, no retractions, no use of accessory muscles and clear to auscultation bilaterally Auscultation: clear to auscultation bilaterally Cardio: Common normals: no JVD Rate: tachycardic Rhythm: abnormal rhythm irregularly irregular GI: Common normals: Normal to inspection, nondistended, normoactive bowel sounds present, soft to palpation, non-tender and no hepatosplenomegaly Palpation: soft and no hepatosplenomegaly Extremity: Other: No lower extremity edema. Neuro: Common normals: oriented x3 Sensorium/orientation: alert Meningeal signs: no meningeal signs Psych: Appearance: well kempt Course Course Hospital Course: Patient is already on cardiac monitoring and pulse oximetry, nursing staff is working on getting an IV and labs. We will do point of care troponin, get a portable chest x-ray and other appropriate labs. Will plan on likely cardioversion rather quickly given his chest symptoms. There is another physician with me in the ED at this time. He will be appropriately monitored. Will give IV beta-pato there is going to be any significant delay in the cardioversion. 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 We will obtain EKG to see if he has self cardioverted. Otherwise we will be setting up for synchronized cardioversion. Will be ordering 12.5 mg oral metoprolol for extra rate control as he is likely self cardioverted but back into a low sinus tachycardia. Reviewed magnesium at 1.8 which with atrial fibrillation history, would recommend being a little bit higher. We are not going to make him wait for an IV infusion of magnesium tonight given that he is cardioverted. I will send in a month's worth for him. He does have cardiology follow-up in July. He understands if he has recurrent symptoms with his atrial fibrillation, he is to return. Reviewed that his chads Vasc score is 2 putting him in a moderate high risk for stroke. I would favor placing him on anticoagulation even though he has cardioverted given the score. I have discussed it with he and his . They are in agreement. Will order 5 mg Eliquis tonight and then send in a prescription for him. He understands the risk of bleeding from this. He can discuss further anticoagulation when he follows up with Cardiology. Time: 22:35 Vital Signs Vital signs: Initial Vital Signs Temperature 98.6 F 06/27/22 21:42 Temperature Source Temporal Artery Scan 06/27/22 21:42 Pulse Rate 166 H 06/27/22 21:42 Pulse Rhythm 06/27/22 21:42 Respiratory Rate 24 06/27/22 21:42 Blood Pressure 174/105 H 06/27/22 21:42 Blood Pressure Mean 128 06/27/22 21:42 Pulse Oximetry 96 06/27/22 21:42 Oxygen Delivery Method 06/27/22 21:42 Vital Signs Temperature 98.6 F 06/27/22 21:42 Pulse Rate 166 H 06/27/22 21:42 Respiratory Rate 24 06/27/22 21:42 Blood Pressure 174/105 H 06/27/22 21:42 Pulse Oximetry 96 06/27/22 21:42 Oxygen Delivery Method 06/27/22 21:42 Temperature 98.6 F 06/27/22 21:42 Pulse Rate 166 H 06/27/22 21:42 Respiratory Rate 24 06/27/22 21:42 Blood Pressure 174/105 H 06/27/22 21:42 Pulse Oximetry 96 06/27/22 21:56 Oxygen Delivery Method 06/27/22 21:42 Medical Decision Making Lab Data Lab results reviewed: Yes I reviewed the patient's lab results Labs: Lab Results 06/27/22 06/27/22 06/27/22 Range/Units 21:57 22:04 22:04 WBC 6.31 (4.50-11.00) K/uL RBC 5.43 (4.30-5.90) m/uL Hgb 15.6 (13.5-17.5) gm/dL Hct 46.5 (37.0-53.0) % MCV 86 (80-100) fL MCH 29 (26-34) pg MCHC 34 (32-36) gm/dL RDW Coeff of Carlos 12.6 (11.5-15.5) % Plt Count 178 (140-440) K/uL Neut % (Auto) 59.5 (42.0-72.0) % Lymph % (Auto) 25.7 (20-44) % Hettinger % (Auto) 10.6 (0.0-11.0) % Eos % (Auto) 3.6 (0.0-7.0) % Baso % (Auto) 0.6 (0.0-3.0) % Neut # (Auto) 3.75 (1.7-7.0) K/uL Lymph # (Auto) 1.62 (0.90-2.90) K/uL Hettinger # (Auto) 0.70 (0.00-0.90) K/UL Eos # (Auto) 0.23 (0.00-0.50) K/uL Baso # (Auto) 0.04 (0.00-0.30) K/uL Sodium 142 (135-149) mmol/L Potassium 3.6 (3.6-5.1) mmol/L Chloride 108 (96-114) mmol/L Carbon Dioxide 20 (20-32) mmol/L BUN 17 (7-30) mg/dL Creatinine 0.8 (0.5-1.5) mg/dL Estimated Creat Clear 73.00 Estimated GFR 96 ml/min Glucose 149 H (60-115) mg/dL Calcium 9.5 (8.4-10.6) mg/dL Magnesium 1.8 (1.5-2.6) mg/dL Total Bilirubin 0.5 (0.1-1.5) mg/dL AST 49 H (12-35) U/L ALT 75 H (4-50) U/L Alkaline Phosphatase 119 (40-150) U/L NT-Pro-B Natriuret Pep 51 pg/mL Total Protein 8.0 (6.0-8.3) g/dL Albumin 4.6 (3.3-5.0) g/dL POC Troponin I 0.00 L (0.01-0.04) ng/ml Imaging Data Chest x-ray: Attestation: I have reviewed the pertinent imaging results. My impression: I see no acute cardiopulmonary pathology on my preliminary review. Radiologist's impression: Patient: GEMMA HILTON Facility:?[facility] Patient ID:?[id number] Site Patient ID:?[id number]. Site :?[id number] Study:?XRay Chest ap portable-06/27/2022 10:31:18 PM Ordering Physician:?Katelynn Thompson Final Report: Indication: Atrial fibrillation with RVR Technique: Chest 1 view Comparison: January 18, 2013 Findings/Impression: Cardiovascular and mediastinum: Heart size and vasculature are normal in caliber and appearance. Mediastinum is within normal limits. Lungs and pleural space: Lungs are clear. No sign of infiltrate or mass. No sign of pleural effusion. No pneumothorax. Bones and soft tissues: No significant findings. Dictated by Annette Camejo MD @ 06/27/2022 10:51:15 PM (Electronic Signature) ECG Data Attestation: I personally reviewed and interpreted this ECG as follows: (Atrial fibrillation with rapid ventricular response, 160 beats per minute. Incomplete right bundle branch block. Inferolateral ST segment depression.) Interpretation: EKG from 22:38 shows sinus rhythm, 99 beats per minute. Incomplete right bundle branch block. ST segment changes have vastly improved. Critical Care Time Critical Care Time Critical Care Time: No Discharge Plan Discharge Clinical Impression: Atrial fibrillation with rapid ventricular response Patient Disposition: Home, Self-Care Condition: Stable Instructions: A-fib (Atrial Fibrillation) (ED) Additional Instructions: Stay on your current medications, add in the magnesium. Need to keep cardiology follow-up that is upcoming. You need to return to the ER for further evaluation if you have further episodes of atrial fibrillation. You can stop your aspirin and start the Eliquis which is a blood thinner to protect you from stroke risk from atrial fibrillation. Activity Level: Activity as Tolerated Prescriptions: New magnesium oxide 400 mg (241.3 mg magnesium) tablet 400 mg PO DAILY Qty: 30 0RF Eliquis 5 mg tablet 5 mg PO BID Qty: 60 2RF No Action lorazepam 0.5 mg tablet 0.5 mg PO QDAY PRN (Reason: anxiety) Qty: 10 0RF vitamin E (dl, acetate) 45 mg (100 unit) capsule 45 mg PO QDAY Fish Oil 100-160-1,000 mg capsule PO flaxseed oil 1,000 mg capsule 1,000 mg PO QDAY Rx Instructions: administer with a meal hydrochlorothiazide 12.5 mg tablet 12.5 mg PO QAM Qty: 30 4RF aspirin [Adult Low Dose Aspirin] 81 mg tablet,delayed release (DR/EC) 81 mg PO QDAY fluticasone propionate 110 mcg/actuation HFA aerosol inhaler 1 inhalation BID atorvastatin 10 mg tablet 10 mg PO .HS Qty: 90 4RF Label Comments: TAKE 1 TABLET BY MOUTH DAILY AT BEDTIME. losartan 100 mg tablet 100 mg PO QDAY Qty: 30 2RF metoprolol succinate 25 mg tablet extended release 24 hr 25 mg PO DAILY Qty: 90 3RF omeprazole 40 mg capsule,delayed release(DR/EC) 40 mg PO QDAY Qty: 90 3RF albuterol sulfate 90 mcg/actuation HFA aerosol inhaler 2 puff INHALATION Q4H PRN (Reason: shortness of breath or wheezing) Qty: 8.5 11RF montelukast 10 mg tablet 10 mg PO QDAY Qty: 90 3RF Follow Up/Referrals: Beltran Tran MD [Primary Care Provider] - Stand Alone Forms: [employer] Info Instructions
[2022-06-27 21:56] VITALS: O2SAT 96
--- NOTE | 2022-06-27 21:56 | CRLHL7_ITS ---
For Patients: As a result of the Century Cures Act, medical imaging exams and procedure reports are released immediately into your electronic medical record. You may view this report before your referring provider. If you have questions, please contact your health care provider. Indication: Atrial fibrillation with RVR Technique: Chest 1 view Comparison: January 18, 2013 Findings/Impression: Cardiovascular and mediastinum: Heart size and vasculature are normal in caliber and appearance. Mediastinum is within normal limits. Lungs and pleural space: Lungs are clear. No sign of infiltrate or mass. No sign of pleural effusion. No pneumothorax. Bones and soft tissues: No significant findings. Dictated by Annette Camejo MD @ 06/27/2022 10:51:15 PM (Electronically Signed)
[2022-06-27 22:17] LABS: Basophils Absolute Auto 0.04 K/uL (0.00-0.30); Basophils Percent Auto 0.6 % (0.0-3.0); Eosinophils Absolute Auto 0.23 K/uL (0.00-0.50); Eosinophils Percent Auto 3.6 % (0.0-7.0); Hematocrit 46.5 % (37.0-53.0); Hemoglobin* 15.6 gm/dL (13.5-17.5); Lymphocytes Absolute Auto 1.62 K/uL (0.90-2.90); Lymphocytes Percent Auto 25.7 % (20-44); Mean Corpuscular HGB Conc 34 gm/dL (32-36); Mean Corpuscular Hemoglobin 29 pg (26-34); Mean Corpuscular Volume 86 fL (80-100); Monocytes Percent Auto 10.6 % (0.0-11.0); Neutrophils Absolute Auto 3.75 K/uL (1.7-7.0); Neutrophils Percent Auto 59.5 % (42.0-72.0); Platelet Count* 178 K/uL (140-440); RDW Coefficient of Variation % 12.6 % (11.5-15.5); Red Blood Count 5.43 m/uL (4.30-5.90); White Blood Count* 6.31 K/uL (4.50-11.00)
[2022-06-27 22:24] LABS: Slide Review Reflex No
[2022-06-27 22:28] LABS: Albumin* 4.6 g/dL (3.3-5.0)
[2022-06-27 22:29] LABS: Chloride* 108 mmol/L (96-114); Potassium* 3.6 mmol/L (3.6-5.1); Sodium* 142 mmol/L (135-149)
[2022-06-27 22:31] LABS: Aspartate Amino Transferase* 49 U/L (12-35); Bilirubin Total* 0.5 mg/dL (0.1-1.5); Blood Urea Nitrogen* 17 mg/dL (7-30); Carbon Dioxide* 20 mmol/L (20-32); Creatinine* 0.8 mg/dL (0.5-1.5); Estimated Glomerular Filt Rate 96 ml/min
[2022-06-27 22:32] LABS: Alanine Aminotransferase* 75 U/L (4-50); Alkaline Phosphatase* 119 U/L (40-150); Calcium* 9.5 mg/dL (8.4-10.6); Glucose* 149 mg/dL (60-115); Magnesium* 1.8 mg/dL (1.5-2.6)
[2022-06-27 22:40] LABS: NT Pro B Type NatriureticPept* 51 pg/mL
[2022-06-27] MEDS: METOPROLOL TARTRATE 50 MG TABLET 12.5 MG PO (23:36)
[2022-06-27] MEDS: APIXABAN 5 MG TABLET PO (23:36)
== END 2022-06-28 00:22 | disposition home or self-care (01) ==
PROVIDERS: Emergency Provider Family Medicine; PCP Internal Medicine
DX: I48.91 Unspecified atrial fibrillation (principal)
CPT/HCPCS: 36415; 71045; 80053; 83735; 83880; 84484; 85025; 93005; 94761; 96374; 99284; 99285; A9270

== ENCOUNTER 2023-02-16 08:05 | Outpatient (CLI) | payer MEDICARE, BC, SELFPAY | END 2023-02-16 08:06 | disposition home or self-care (01) | LOC: NFLDREF 02-20 05:38 | PROVIDERS: PCP Internal Medicine; Referring Provider Internal Medicine; Visit Provider Internal Medicine | DX: Z12.5 Encounter for screening for malignant neoplasm of prostate (principal); E78.5 Hyperlipidemia, unspecified; I10 Essential (primary) hypertension | CPT/HCPCS: 80053; 80061; 84153 ==

== ENCOUNTER 2023-03-09 09:58 | Emergency (ER) | payer MEDICARE, BC, SELFPAY ==
[2023-03-09 10:02] VITALS: BP 169/91; PULSE 87; RESP 18; TEMP 37.3; O2SAT 96; BMI 42.3
--- NOTE | 2023-03-09 10:37 | ED_ITS ---
HPI - General Adult General Date Seen: 03/09/23 Chief complaint: Shortness of Breath/Dyspnea Stated complaint: COVID +, shortness of breath Time Seen by Provider: 03/09/23 10:35 History of Present Illness HPI narrative: This is a very pleasant 67-year-old gentleman with a past medical history including atrial fibrillation (on metoprolol, on Eliquis, has multiple previous cardioversions and failed ablation so-has long-term paroxysmal AFib, managing supportively with Cardiology at [facility]), asthma, hypertension, overweight, GERD, dyslipidemia. He presents to the ER today after a positive home coronavirus test, desiring to start Paxlovid. He was exposed to coronavirus when he attended a [employer] concert a few days ago. One of the band members apparently was positive for COVID (but wearing a mask). He developed symptoms yesterday. His symptoms include nasal congestion, mild headache, mild cough. He is not really short of breath. No chest pain. No vomiting. No diarrhea. Sense of taste and smell are normal. No fever. He has never tested positive for COVID before. He has not had it, as far as he knows. He has had his original vaccine series and did get a bivalent booster last year. He actually had his by bivalent on Monday, 4 days ago. Recent medical records: 02/21/2023-PCP visit 67-year-old gentleman who comes in today to follow-up on his asthma. His fatigue is no need to change to Flovent per his insurance. His breathing has been stable. He does have paroxysmal atrial fibrillation for which he takes Eliquis. His GERD is under good control his blood pressure is high today but it is usually 120/70 at home. Patient is interested in RSV and COVID vaccinations. Colonoscopy is not due until 2026. Assessment & Plan (1) Asthma: Plan: I did change per his insurance recommendations to Flovent. Will continue current management otherwise. (2) Hypertension: Plan: Patient follows blood pressure carefully at home and gets much more reasonable readings and we are getting today. He will continue follow at home. (3) GERD (gastroesophageal reflux disease): Plan: Doing well continue current management. (4) Atrial fibrillation: Plan: Symptoms are paroxysmal and limited. Will continue anticoagulation beta- blockade. (5) Hyperlipidemia: Plan: Lipids are reasonable. Plan We did ask him to get his COVID and RSV vaccination at his pharmacy. Diagnoses Asthma J45.909 Hypertension I10 GERD (gastroesophageal reflux disease) K21.9 Atrial fibrillation I48.91 Hyperlipidemia E78.5 Related Data Home Medications Medication Instructions Recorded Confirmed flaxseed oil 1,000 mg capsule 1,000 mg PO QDAY 05/24/22 02/21/23 omega 1-clt-nmv-fish oil 100 cap PO 05/24/22 02/21/23 mg-160 mg-1,000 mg capsule (Fish Oil) vitamin E (dl, acetate) 45 mg (100 45 mg PO QDAY 05/24/22 02/21/23 unit) capsule metoprolol succinate 25 mg capsule 25 mg PO QDAY 02/21/23 02/21/23 sprinkle, ext. release 24 hr montelukast 10 mg tablet 10 mg PO QDAY PRN Asthma 02/21/23 Previous Rx's Medication Instructions Recorded albuterol sulfate 90 mcg/actuation 2 puff inhalation Q4H PRN 04/26/22 aerosol inhaler shortness of breath or wheezing #8.5 grams atorvastatin 10 mg tablet 10 mg PO .HS Hyperlipidemia #90 04/26/22 tabs omeprazole 40 mg capsule,delayed 40 mg PO QDAY GERD #90 caps 04/26/22 release magnesium oxide 400 mg (241.3 mg 400 mg PO DAILY #30 tabs 06/27/22 magnesium) tablet lorazepam 0.5 mg tablet 0.5 mg PO QDAY PRN anxiety #30 tabs 07/05/22 nitroglycerin 0.4 mg sublingual 0.4 mg sublingual Q5-15M PRN chest 07/05/22 tablet pain #30 tabs apixaban 5 mg tablet (Eliquis) 5 mg PO BID Atrial Fibrillation #8 07/21/22 tabs hydrochlorothiazide 12.5 mg tablet 12.5 mg PO QAM Hypertension #90 01/12/23 tabs losartan 100 mg tablet 100 mg PO QDAY Hypertension #30 01/12/23 tabs fluticasone propionate 100 1 inh inhalation BID Asthma #60 ea 02/24/23 mcg/actuation blister powder for inhalation (Flovent Diskus) nirmatrelvir 300 mg (150 mg See Rx Instructions PO .COMPLEX 03/09/23 x2)-ritonavir 100 mg tablet,dose #30 ea pack (Paxlovid) Allergies Allergy/AdvReac Type Severity Reaction Status Date / Time No Known Drug Allergies Allergy Verified 02/21/23 08:20 [facility] Medical History (Updated 03/09/23 @ 11:33 by Seven Dobson MD) Asthma ?J45.909 - Unspecified asthma, uncomplicated (ICD-10) Hypertension ?I10 - Essential (primary) hypertension (ICD-10) GERD (gastroesophageal reflux disease) ?K21.9 - Gastro-esophageal reflux disease without esophagitis (ICD-10) Surgical History (Updated 01/18/22 @ 17:39 by AmiraMaida Dye) Status post total right knee replacement ?Z96.651 - Presence of right artificial knee joint (ICD-10) Status post total left knee replacement ?Z96.652 - Presence of left artificial knee joint (ICD-10) Social History Smoking Status: Former smoker (quit 45 years ago) Do you use any of these nicotine containing products: None Second hand tobacco smoke exposure: No How often do you have a drink containing alcohol: 4 or more times a week How many standard drinks containing alcohol do you have on a typical day: 1 or 2 How often do you have six or more drinks on one occasion: Never AUDIT-C Alcohol total score: 4 Non-prescribed substance use: denies use Little interest or pleasure in doing things: not at all Feeling down, depressed, or hopeless: not at all Exam Narrative: Exam Narrative: Constitutional: Appears well-developed and well-nourished. Alert. Conversant. Non toxic. Sitting up on the edge of his bed. He is conversant, intelligent, and is looking up his meds on his smart phone to make sure we get all the proper interaction checking. HENT: Head: Atraumatic. Nose: Nose normal. Mouth/Throat: Oral mucosa is clear and moist. no trismus. Wearing a mask Neck: Normal range of motion. Neck supple. No tracheal deviation present. Cardiovascular: Normal rate, regular rhythm. No gallop. Pulmonary/Chest: Effort normal. No stridor. No respiratory distress. Musculoskeletal: RUE: Normal range of motion. No tenderness. No deformity LUE: Normal range of motion. No tenderness. No deformity RLE: Normal range of motion. No edema. No tenderness. No deformity LLE: Normal range of motion. No edema. No tenderness. No deformity Neurological: Alert and oriented to person, place, and time. Normal strength. CN II-VII intact. No sensory deficit. GCS eye subscore is 4. GCS verbal subscore is 5. GCS motor subscore is 6. Normal coordination Skin: Skin is warm and dry. No rash noted. No pallor. Normal capillary refill. Psychiatric: Normal mood. Normal affect. Const: Vital Signs, click to edit/add: Vital Signs - 24 hr 03/09/23 10:02 Temperature 99.2 F Pulse Rate [Right Pulse Oximeter] 87 Respiratory Rate 18 Blood Pressure [Ri ght Upper Arm] 169/91 H Pulse Oximetry 96 Oxygen Delivery Me thod Room Air Course Vital Signs Vital signs: Initial Vital Signs Temperature 99.2 F 03/09/23 10:02 Temperature Source Temporal Artery Scan 03/09/23 10:02 Pulse Rate 87 03/09/23 10:02 Respiratory Rate 18 03/09/23 10:02 Blood Pressure 169/91 H 03/09/23 10:02 Blood Pressure Mean 117 H 03/09/23 10:02 Blood Pressure Position Sitting 03/09/23 10:02 Pulse Oximetry 96 03/09/23 10:02 Oxygen Delivery Method Room Air 03/09/23 10:02 Vital Signs Temperature 99.2 F 03/09/23 10:02 Pulse Rate 87 03/09/23 10:02 Respiratory Rate 18 03/09/23 10:02 Blood Pressure 169/91 H 03/09/23 10:02 Pulse Oximetry 96 03/09/23 10:02 Oxygen Delivery Method Room Air 03/09/23 10:02 Temperature 99.2 F 03/09/23 10:02 Pulse Rate 87 03/09/23 10:02 Respiratory Rate 18 03/09/23 10:02 Blood Pressure 169/91 H 03/09/23 10:02 Pulse Oximetry 96 03/09/23 10:02 Oxygen Delivery Method Room Air 03/09/23 10:02 Medical Decision Making [facility] Narrative Medical decision making narrative: This patient presents for evaluation of mild cough, nasal congestion, headache. This is consistent with an upper respiratory tract infection. Viral testing was positive for COVID on a home test this morning.. There is no signs at this point of serious bacterial infection such as OM, RPA, epiglottitis, [employer]ICIAN, strep pharyngitis, pneumonia, sinusitis, meningitis, bacteremia, serious bacterial infection. Given clear lungs, fever curve, no hypoxia and no respiratory distress I do not feel a CXR is indicated at this point as the probability of bacterial pneumonia is very unlikely. There are no gastrointestinal symptoms at this point and no signs of dehydration. With positive coronavirus test and the patient's age and medical comorbidities he would is ?high risk? for developing severe disease. In his favor he has had previous vaccinations and actually just got his booster this fall 4 days ago. Nonetheless, he does qualify for antiviral treatment with Paxlovid. We reviewed his medication list. There are interactions with apixaban and atorvastatin. Other medications not appear to interact. He will decrease the dose of apixaban from 5 mg b.i.d. down to 2.5 mg b.i.d. while on Paxlovid. He will hold the atorvastatin well and Paxlovid. He has no history of renal insufficiency. No recent vomiting or diarrhea to suggest an acute kidney injury. At this point I do not think he needs repeat labs are creatinine measurement. All pharmacies in [place] are closed today because of the holiday. He has time and is willing to drive to get his Paxil bits weakness started today (rather than wait till tomorrow). We were able to identify a 24 hour [facility] in [place] that is open and has Paxlovid in stock. Prescription E prescribed to the [facility] at the [place] of [address] [place] [address] [address] in [place]. Close followup with primary care physician is indicated. Discussed risks of progression with coronavirus. Return to ED for trouble breathing, low oxygen sats, progressive weakness, fever > 103, protracted vomiting, confusion, or other worsening. Discharge Plan Discharge Clinical Impression: COVID-19 Patient Disposition: Home, Self-Care Condition: Stable Instructions: COVID-19 (Coronavirus Disease 2019) (ED) Additional Instructions: Please return to the ER right away if you have any problems-especially worsening trouble breathing, oxygen level below 90%, weakness, chest pain, uncontrolled vomiting or diarrhea, dehydration. Make the following changes for your medications: Decrease your dose of apixaban down to 2.5 mg twice daily for 5 days while you are on Paxlovid. After you finish the Paxlovid, resume your normal dose. Do not take atorvastatin while you are on Paxlovid. Prescriptions: New Paxlovid 300 mg (150 mg x 2)-100 mg tablets,dose pack See Rx Instructions .ROUTE .COMPLEX Qty: 30 0RF Rx Instructions: take TWO 150 mg tablets of nirmatrelvir with ONE 100 mg tablet of ritonavir twice daily for 5 days No Action vitamin E (dl, acetate) 45 mg (100 unit) capsule 45 mg PO QDAY Fish Oil 100-160-1,000 mg capsule PO flaxseed oil 1,000 mg capsule 1,000 mg PO QDAY Rx Instructions: administer with a meal nitroglycerin 0.4 mg tablet, sublingual 0.4 mg sublingual Q5-15M PRN (Reason: chest pain) Qty: 30 2RF Rx Instructions: do not exceed 3 doses per episode metoprolol succinate 25 mg capsule,sprinkle,ER 24hr 25 mg PO QDAY montelukast 10 mg tablet 10 mg PO QDAY PRN (Reason: Asthma) magnesium oxide 400 mg (241.3 mg magnesium) tablet 400 mg PO DAILY Qty: 30 0RF atorvastatin 10 mg tablet 10 mg PO .HS Qty: 90 4RF Patient Comments: TAKE 1 TABLET BY MOUTH DAILY AT BEDTIME. omeprazole 40 mg capsule,delayed release(DR/EC) 40 mg PO QDAY Qty: 90 3RF albuterol sulfate 90 mcg/actuation HFA aerosol inhaler 2 puff INHALATION Q4H PRN (Reason: shortness of breath or wheezing) Qty: 8.5 11RF lorazepam 0.5 mg tablet 0.5 mg PO QDAY PRN (Reason: anxiety) Qty: 30 0RF Eliquis 5 mg tablet 5 mg PO BID Qty: 8 2RF losartan 100 mg tablet 100 mg PO QDAY Qty: 30 2RF hydrochlorothiazide 12.5 mg tablet 12.5 mg PO QAM Qty: 90 0RF Flovent Diskus 100 mcg/actuation blister with device 1 inh inhalation BID Qty: 60 3RF Follow Up/Referrals: Beltran Tran MD [Primary Care Provider] - Stand Alone Forms: [facility] Info Instructions
[2023-03-09 11:48] VITALS: BP 169/91; PULSE 87; RESP 18; TEMP 37.3
== END 2023-03-09 11:49 | disposition home or self-care (01) ==
PROVIDERS: Emergency Provider Emergency Medicine; PCP Internal Medicine
DX: U07.1 COVID-19 (principal)
CPT/HCPCS: 99283

== ENCOUNTER 2024-03-19 07:50 | Outpatient (CLI) | payer MEDICARE, BC, SELFPAY ==
--- OUTSIDE RECORDS SUMMARY | 2024-03-23 13:18 | XMS_ITS | Encounter Summary ---
Author Organization [facility] Address [address] [place] [address] Care Team Providers Care Oven Worker Name Role Phone Elsewhere, Pcp Primary Care Provider Unavailabl e Encounter Details Date Type Department Care Team (Latest Contact Info) Description 02/27/2024 10:30 AM [employer]ADER Clinical Communication Virtual Review in [place], [place] [address] [place] [address] Social History Tobacco Use Types Packs/Day Years Used Date Smoking Tobacco: Former Cigarettes Smokeless Tobacco: Former Alcohol Use Standard Drinks/Week Comments Yes 20 (1 standard drink = 0.6 oz pu re alcohol) [facility] Utilities Answer Date Recorded In the past 12 months has [facility], gas, oil, or water [employer] threatened to shut off services in your home? No 02/22/2024 Humiliation, Afraid, Rape, and Kick questionnair e Answer Date Recorded Within the last year, have y ou been afraid of your partner or ex-partner? No 07/24/2022 Within the last year, have y ou been humiliated or emotionally abused in other ways by your partner or ex-partner? No Within the last year, have y ou been kicked, hit, slapped, or otherwise physically hurt by your partner or ex-partner? No 07/24/2022 Within the last year, have y ou been raped or forced to have any kind of sexual activity by your partner or ex-partner? No 07/24/2022 Social Connection and Isolat ion Panel [NHANES] Answer Date Recorded In a typical week, how many times do you talk on the phone with family, friends, or neighbors? More than three times a week 07/24/2022 How often do you get togethe r with friends or relatives? Once a week 07/24/2022 How often do you attend chur or faith services? More than 4 times per year 07/24/2022 Do you belong to any clubs o r organizations such as christian groups, unions, fraternal or athletic groups, or school groups? Yes 07/24/2022 How often do you attend meet ings of the clubs or organizations you belong to? More than 4 times per year 07/24/2022 Are you , , di vorced, , never , or living with a partner? 07/24/2022 AUDIT-C Answer Date Recorded Q1: How often do you have a drink containing alcohol? 4 or more times a week 07/24/2022 Q2: How many drinks containi ng alcohol do you have on a typical day when you are drinking? 3 or 4 Q3: How often do you have si x or more drinks on one occasion? Never 07/24/2022 Overall Financial Resource Strain (CARDIA) Answe r Date Recorded How hard is it for you to pa y for the very basics like food, housing, medical care, and heating? Not hard at all 07/24/2022 [facility] [place] of Occupat ional Health - Occupational Stress Questionnaire Answer Date Recorded Do you feel stress - tense, restless, nervous, or anxious, or unable to sleep at night because your mind is troubled all the time - these days? Only a little 07/24/2022 Exercise Vital Sign Answer Date Recorde d On average, how many days pe r week do you engage in moderate to strenuous exercise (like a brisk walk)? 5 days 02/22/2024 On average, how many minutes do you engage in exercise at this level? 30 min 02/22/2024 Hunger Vital Sign Answer Date Recorded Within the past 12 months, y ou worried that your food would run out before you got the money to buy more. Never true 02/22/20 24 Within the past 12 months, t he food you bought just didn't last and you didn't have money to get more. Never true 02/22/2024 PRAPARE - Transportation Answer Date Re corded In the past 12 months, has l ack of transportation kept you from medical appointments or from getting medications? No 10/2023 In the past 12 months, has l ack of transportation kept you from meetings, work, or from getting things needed for daily living? No 02/22/2024 Nutrition Answer Date Recorded On average, how many serving s of fruits and vegetables do you eat per day (serving size is equal to 1 cup or approximately the size of a tennis ball)? 3-5 02/22/2024 Dental Answer Date Recorded Dental: Regular Dentist Yes 07/25/19 Employment Answer Date Recorded Employment status Retired 02/22/2024 Housing Stability Answer Date Recorded What is your living situation today? I have a [facility] place to live 02/22/2024 Education Answer Date Recorded What is the highest level of school you have completed or the highest degree you have received? Bachelor's degree (e.g., BA, AB, BS) 07/24/2022 Sex and Gender Information Value Date Recorded Sex Assigned at Male 07/24/2022 7:51 PM CDT Legal Sex Male 6:02 PM [employer] Gender Identity Male 07/24/2022 7:51 PM CDT Sexual Orientation Straight 07/24/2022 7: 51 PM CDT documented as of this encounter Plan of Treatment Not on file documented as of this encounter Visit Diagnoses Not on filedocumented in this encounter Care Teams Oven Worker Relationship Specialty Start Date End Date Elsewhere, Pcp PCP - General 03/30/18 documented as of this encounter
--- OUTSIDE RECORDS SUMMARY | 2024-03-23 13:18 | XMS_ITS | Referral Summary ---
Author Organization [facility] Address [address] [place] [id number] Care Team Providers Care Individual Small Group Instructor Name Role Phone Elsewhere, Pcp Primary Care Provider Unavailabl e Source Comments Patient records contain information from all sites at [facility]. For routine questions regarding patient records, call [phone] during business hours, M-F 8:00 AM - 5:00 PM Central Time. Record requests for emergency care only can be directed to [phone] at any time.[facility] Encounters Date Type Department Care Team Description 02/28/2024 2:00 PM TIE BINDER Comprehensive Visit Department of Otorhinolaryngology in [place], [place] [address] [place] [phone] Yaron Kilpatrick M.D. 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 Graham, Madison K, Au.D., M.A. 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 01/20/20 22 Active LORazepam (ATIVAN) 0.5 mg tablet Take 0.5 mg by mouth as needed. 04/19/19 23 Active losartan (COZAAR) 100 mg tablet Take 100 mg by mouth daily. for hypertension 07/20/19 23 Active montelukast (SINGULAIR) 10 mg tablet Take 10 mg by mouth as needed. 07/18/19 14 Active omeprazole (PriLOSEC) [address] capsule Take 40 mg by mouth daily. for gerd 07/20/19 23 Active albuterol 90 mcg/actuation inhaler Inhale 1 puff as needed. 12/30/19 22 Active cholecalcifero l, vitamin D3, 25 mcg (1,000 Unit) tablet Take 1 tablet by mouth daily. 03/11/20 13 Active flaxseed oiL 1,000 mg capsule Take 1 capsule by mouth daily. 03/29/20 13 Active fluticasone propionate (FLOVENT HFA) 110 mcg/actuation inhaler Inhale 1 puff as needed. 07/18/19 17 Active hydroCHLOROthi azide (HYDRODIURIL) 12.5 mg tablet Take 12.5 mg by mouth every morning. for hypertension 07/20/19 23 Active magnesium oxide (MAG-OX) 400 mg (241.3 mg magnesium) tablet Take 400 mg by mouth daily. 06/29/19 23 Active nitroglycerin (NITROSTAT) 0.4 mg SL tablet as needed. 07/06/19 23 Active omega 5-txz-dvh-fish oil 1,000 mg (120 mg-180 mg) capsule Take 1 capsule by mouth daily. 07/18/19 10 Active Eliquis 5 mg tablet Take 1 tablet (5 mg total) by mouth 2 (two) times a day. 180 tablet 3 07/30/19 23 Active metoprolol succinate (TOPROL-XL) 25 mg 24 hr tablet Take 3 tablets (75 mg total) by mouth daily. 270 tablet 3 11/26/19 23 Active ascorbic acid, vitamin C, 250 mg tablet,chewabl e Chew 1 tablet daily. 04/22/19 15 024 Discontinued acetaminophen (TYLENOL) 500 mg tablet Take 2 tablets by mouth every 6 (six) hours as needed. 03/29/20 13 024 Discontinued Active Problems Problem Noted Date Diagnosed Date Hypertensive Heart Disease Without Heart Failure 07/29/2022 Morbid Obesity Body Mass Index 40.0-44.9 Adult 0 07/29/2022 Atrial Fibrillation Other Persistent 07/29/2022 Immunizations Name Administration Dates Next Due Influenza Split 01/18/2013 Social History Tobacco Use Types Packs/Day Years Used Date Smoking Tobacco: Former Cigarettes Smokeless Tobacco: Former Tobacco Cessation:Counseling Given: Not Answered Alcohol Use Standard Drinks/Week Comments Yes 20 (1 standard drink = 0.6 oz pu re alcohol) [facility] Utilities Answer Date Recorded In the past 12 months has e [employer], gas, oil, or water [employer] threatened to shut off services in your [...] 07/24/2022 How often do you attend chur ch or rastafarian services? More than 4 times per year 07/24/2022 Do you belong to any clubs o r organizations such as protestant groups, unions, fraternal or athletic groups, or [...] when you are drinking? 3 or 4 3 Q3: How often do you have si x or more drinks on one occasion? Never 07/24/2022 Overall Financial Resource Strain (CARDIA) Answe r Date Recorded How hard is it for you to pa y for the very basics like food, housing, medical care, and heating? Not hard at all 07/24/2022 [facility] [place] of Occupat ional Health - Occupational Stress [...] Date Recorded Dental: Regular Dentist Yes 07/25/19 23 Employment Answer Date Recorded Employment status Retired 02/22/2024 Housing Stability Answer Date Recorded What is your living situation today? I have a [facility] place to live 02/22/2024 Education Answer Date Recorded What is the highest level of school you have completed or the highest degree you have received? Bachelor's degree (e.g., BA, AB, BS) 07/24/2022 Sex and Gender Information Value Date Recorded Sex Assigned at Male 07/24/2022 7:51 PM CDT Legal Sex Male 6:02 PM TIE BINDER Gender Identity Male 07/24/2022 7:51 PM CDT Sexual Orientation Straight 07/24/2022 7: 51 PM CDT Last Filed Vital Signs Vital Sign Reading Time Taken Comments Blood Pressure 190/81 07/29/2022 2:53 PM CDT Pulse 68 07/29/2022 2:53 PM CDT Temperature - - Respiratory Rate 14 03/30/2013 4:00 AM TIE BINDER Value from [employer]. Oxygen Saturation - - Inhaled Oxygen Concentration - - Weight 135 kg (297 lb 4.6 oz) 07/29/2022 2:53 PM CDT Height 177.3 cm (5' 9.8) 07/29/2022 2: 53 PM CDT Body Mass Index 42.9 07/29/2022 2:53 PM CDT Plan of Treatment Not on file Medical Devices Implanted Type Area Stone Paver Device Identifier Shelf Expiration Date Model / Serial / Lot Knee Implant- [id number] Implanted:06/15 (Quantity not on file) Knee Implant Bilatera l: Knee Procedures Procedure Name Priority Date/Time Associated Diagnosis Comments OTOLARYNGOLOGY REFERRAL Routine 02/28/2024 12:00 AM TIE BINDER Perforation Tympanic Membrane Right SODIUM, S/P Routine 07/28/2022 1:42 PM CDT Atrial Fibrillation Unspecified POTASSIUM, S/P Routine 07/28/2022 1:42 PM CDT Atrial Fibrillation Unspecified CREATININE WITH EGFR, S/P Routine 07/28/2022 1:42 PM CDT Atrial Fibrillation Unspecified from Last 3 Months or Most Recently Relevant to Health Maintenance Results * Otolaryngology Referral (02/28/2024 12:00 AM TIE BINDER) 02/28/2024 Steven Li M.D. OUTPATIENT EXTERNAL REF ERRALS Final Result * Sodium (07/28/2022 1:42 PM CDT) Sodium, S 142 135 - 145 mmol/L 07/28/2022 3:04 PM CDT DTL Blood (Blood, Venous) 07/28/2022 1:42 PM CDT 07/28/2022 2:31 PM CDT Steve Wise M.D. LAB BLOOD ADD-ON Fi nal Result Performing Organization Address City/[facility]/ZIP Co de Phone Number [facility] [address] [place] [address] * Potassium (07/28/2022 1:42 PM CDT) Potassium, S 4.4 3.6 - 5.2 mmol/L 07/28/2022 3:04 PM CDT DTL Blood (Blood, Venous) 07/28/2022 1:42 PM CDT 07/28/2022 2:31 PM CDT Steve Wise M.D. LAB BLOOD ADD-ON Fi nal Result Performing Organization Address City/[facility]/ZIP Co de Phone Number [facility] [address] [place] [address] * Creatinine with Estimated GFR (07/28/2022 1:42 PM CDT) Creatinine 1.00 0.74 - 1.35 mg/dL 07/28/2022 3:04 PM CDT DTL Estimated GFR (eGFR) 82 >=60 mL/min/BSA 07/28/2022 3:04 PM CDT DTL Comment: Estimated GFR calculated using the 2020 CKD_EPI creatinine equation. Blood (Blood, Venous) 07/28/2022 1:42 PM CDT 07/28/2022 2:31 PM CDT Steve Wise M.D. LAB BLOOD ADD-ON Fi nal Result [facility] [address] [place] [address], [place] DTL Formerly [facility] [address] [place] [address] from Last 3 Months or Most Recently Relevant to Health Maintenance Insurance MEDICARE [facility] Care Teams Individual Small Group Instructor Relationship Specialty Start Date End Date Elsewhere, Pcp PCP - General 03/30/18
--- OUTSIDE RECORDS SUMMARY | 2024-03-23 13:18 | XMS_ITS | Clinical Summary ---
Author Organization [facility] Address [address] [place] [address] Care Team Providers Care Foam Machine Operator Name Role Phone Elsewhere, Pcp Primary Care Provider Unavailabl e Source Comments Patient records contain information from all sites at [facility]. For routine questions regarding patient records, call [phone] during business hours, M-F 8:00 AM - 5:00 PM Central Time. Record requests for emergency care only can be directed to [phone] at any time.[facility] Allergies Active Allergy Reactions Criticality Noted Date [...] tablet as needed. 07/06/19 23 Active omega 7-ccz-svz-fish oil 1,000 mg (120 mg-180 mg) capsule [...] 0 07/29/2022 Atrial Fibrillation Other Persistent 07/29/2022 Encounters Date Type Department Care Team Description 02/28/2024 2:00 PM BRAZER FURNACE Comprehensive Visit Department of Otorhinolaryngology in [place], [place] [address] [place] [address] Yaron Kilpatrick M.D. 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 Brenda Louise Au.D., M.A. 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 (Primary Dx); Perforation Tympanic Membrane Right 02/27/2024 10:30 AM BRAZER FURNACE Clinical Communication Virtual Review in [address] [phone] from Last 3 Months Immunizations Name Administration Dates Next Due Influenza Split 01/18/2013 Family History Medical History Relation Name Comments Other cancer Brother Suhail Mercado CLL He and m y mother both had it Coronary artery disease Father Brent Mercado Prostate cancer Father Brent Mercado Stroke Father Brent Mercado Breast cancer Mother Yolie Mercado Also had CLL Dementia Mother Yolie Mercado Other cancer Mother's Brother Hamzah Yip CLL Other cancer Sister Cassandra Mercado B-stage l ymphoma Rheum arthritis Sister Cassandra Mercado Relation Name Status Comments Brother Suhail Mercado Alive Father Brent Mercado Alive Mother Yolie Mercado Alive Mother's Brother Hamzah Yip Alive Sister Cassandra Mercado Alive Social History Tobacco Use Types Packs/Day Years Used Date Smoking Tobacco: Former Cigarettes Smokeless Tobacco: Former Tobacco Cessation:Counseling Given: Not Answered Alcohol Use Standard Drinks/Week Comments Yes 20 (1 standard drink = 0.6 oz pu re alcohol) [facility] Utilities Answer Date Recorded In the past 12 months has [facility] [employer], gas, oil, or water [employer] threatened to shut off services in your [...] often do you attend chur ch or cheondoism services? More than 4 times per year 07/24/2022 Do you belong to any clubs o r organizations such as muslim groups, unions, fraternal or athletic groups, or [...] and heating? Not hard at all 07/24/2022 [facility] of Occupat ional Health - Occupational Stress [...] your living situation today? I have a [facility] place to live 02/22/2024 Education Answer Date Recorded What is the highest level of school you have completed or the highest degree you have received? Bachelor's degree (e.g., BA, AB, BS) 07/24/2022 Sex and Gender Information Value Date Recorded Sex Assigned at Male 07/24/2022 7:51 PM CDT Legal Sex Male 6:02 PM BRAZER FURNACE Gender Identity Male 07/24/2022 7:51 PM CDT Sexual Orientation Straight 07/24/2022 7: 51 PM CDT Last Filed Vital Signs Vital Sign Reading Time Taken Comments Blood Pressure 190/81 07/29/2022 2:53 PM CDT Pulse 68 07/29/2022 2:53 PM CDT Temperature - - Respiratory Rate 14 03/30/2013 4:00 AM BRAZER FURNACE Value from [employer]. Oxygen Saturation - - Inhaled Oxygen Concentration - - Weight 135 kg (297 lb 4.6 oz) 07/29/2022 2:53 PM CDT Height 177.3 cm (5' 9.8) 07/29/2022 2: 53 PM CDT Body Mass Index 42.9 07/29/2022 2:53 PM CDT Plan of Treatment Health Maintenance Due Date Last Done Comments Abdominal Aortic Aneurysm (AAA) Screen 1953 CT Colonography 1953 Cologuard 1953 FIT 1953 Fasting Glucose for Diabetes Screening 1955 Hepatitis C Screening 1955 Colonoscopy 03/12/2017 03/12/2007 (Perf ormed elsewhere) Colorectal Cancer Screening 03/12/2017 Office Visit for Blood Pressure Check / Re-check 10/28/2022 07/29/2022 Depression Screening (Annual PHQ-2) 04/17/2023 Fall Risk Screen (Annual) 04/17/2023 Creatinine Level (Kidney Function Test) 07/29/2023 07/28/2022, 03/28/2013 Potassium Level 07/29/2023 07/28/2022, 03/28/2013 Sodium Level 07/29/2023 07/28/2022, 03/28/2013 COVID-19 Vaccine ( season) 2023 03/06/2023, 12/27/2021, 07/20/2021, Additional history exists Influenza Vaccine (#1) 2024 , 01/25/2022, 02/03/2021, Additional history exists Pneumococcal vaccine (65+ years) (3 of 3 - PPSV23 or PCV20) 04/22/2024 04/22/2019, 05/01/2011 DTaP,Tdap,and Td Vaccines (4 - Td or Tdap) 02/08/2028 02/07/2018, 11/24/2017, 05/01/2009, Additional history exists Zoster Vaccines Completed 03/11/2020, 04/22/2019 RSV vaccine - (32-36 weeks) or 60+ years Completed 03/02/2023 IPV Vaccines Aged Out No longer eligi ble based on patient's age to complete this topic Medical Devices Implanted Type Area Finish Grinder Device Identifier Shelf Expiration Date Model / Serial / Lot Knee Implant- [id number] Implanted:06/15 (Quantity not on file) Knee Implant Bilatera l: Knee Procedures Procedure Name Priority Date/Time Associated Diagnosis Comments OTOLARYNGOLOGY REFERRAL Routine 02/28/2024 12:00 AM BRAZER FURNACE Perforation Tympanic Membrane Right SODIUM, S/P Routine 07/28/2022 1:42 PM CDT Atrial Fibrillation Unspecified POTASSIUM, S/P Routine 07/28/2022 1:42 PM CDT Atrial Fibrillation Unspecified CREATININE WITH EGFR, S/P Routine 07/28/2022 1:42 PM CDT Atrial Fibrillation Unspecified from Last 3 Months or Most Recently Relevant to Health Maintenance Results * Otolaryngology Referral (02/28/2024 12:00 AM BRAZER FURNACE) 02/28/2024 Steven Li M.D. OUTPATIENT EXTERNAL REF ERRALS Final Result * Sodium (07/28/2022 1:42 PM CDT) Sodium, S 142 135 - 145 mmol/L 07/28/2022 3:04 PM CDT DTL Blood (Blood, Venous) 07/28/2022 1:42 PM CDT 07/28/2022 2:31 PM CDT Steve Wise M.D. LAB BLOOD ADD-ON Fi nal Result Performing Organization Address City/[facility]/ZIP Co de Phone Number [facility] [address] [facility] [address] [facility] [address] [place] [address] * Potassium (07/28/2022 1:42 PM CDT) Potassium, S 4.4 3.6 - 5.2 mmol/L 07/28/2022 3:04 PM CDT DTL Blood (Blood, Venous) 07/28/2022 1:42 PM CDT 07/28/2022 2:31 PM CDT Steve Wise M.D. LAB BLOOD ADD-ON Fi nal Result [facility] [address] [facility] [address] [address] [place] [address] * Creatinine with Estimated GFR (07/28/2022 1:42 PM CDT) Creatinine 1.00 0.74 - 1.35 mg/dL 07/28/2022 3:04 PM CDT DTL Estimated GFR (eGFR) 82 >=60 mL/min/BSA 07/28/2022 3:04 PM CDT DTL Comment: Estimated GFR calculated using the 2020 CKD_EPI creatinine equation. Blood (Blood, Venous) 07/28/2022 1:42 PM CDT 07/28/2022 2:31 PM CDT Steve Wise M.D. LAB BLOOD ADD-ON Fi nal Result [facility] [address] [place] [address], [facility] [address] [place] [address] from Last 3 Months or Most Recently Relevant to Health Maintenance Insurance MEDICARE [facility] Care Teams Foam Machine Operator Relationship Specialty Start Date End Date Elsewhere, Pcp PCP - General 03/30/18
--- OUTSIDE RECORDS SUMMARY | 2024-03-23 13:18 | XMS_ITS ---
Author Organization [facility] Address [address] [place] [address] Care Team Providers Care Form Setter Steel Pan Forms Name Role Phone Unavailable Unavailable Unavailable Surgery Details Not on file Complications Check Surgery Details section. Procedure Estimated Blood Loss Check Surgery Details section. Procedure Findings Check Surgery Details section. Procedure Specimens Taken Check Surgery Details section.
--- OUTSIDE RECORDS SUMMARY | 2024-03-23 13:18 | XMS_ITS | Encounter Summary ---
Author Organization [facility] Address [address] [place] [address] Care Team Providers Care Data Analytics Developer Name Role Phone Elsewhere, Pcp Primary Care Provider Unavailabl e Reason for Visit * Outpatient (Routine) - Closed Specialty Diagnoses / Procedures Referred By Contchris t Referred To Contact Otorhinolaryngology Diagnoses Perforation Tympanic Membrane Bilateral Steven Li M.D. [address] [place] [address] Phone: tel: fax: [facility] Referral ID Status Reason Start Date Expiration Date Visits Re quested Visits Authorized [id number] Closed 11/23/2023 05/24/2025 1 1 Encounter Details Date Type Department Care Team (Latest Contact Info) Description 02/28/2024 1:00 PM TECHNICAL PLANNER Diagnostic Department of Otorhinolaryngology in [place], [place] [address] [place] [address] Steven Li M.D. [address] [place] [phone] Brenda Louise Au.D., M.A. 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 More than 4 times per year 07/24/2022 Do you belong to any clubs o r organizations such as taoism groups, unions, fraternal or athletic groups, or [...] and heating? Not hard at all 07/24/2022 [facility] of Occupat ional Health - Occupational Stress [...] your living situation today? I have a [facility] place to live 02/22/2024 Education Answer Date Recorded What is the highest level of school you have completed or the highest degree you have received? Bachelor's degree (e.g., BA, AB, BS) 07/24/2022 Sex and Gender Information Value Date Recorded Sex Assigned at Male 07/24/2022 7:51 PM CDT Legal Sex Male 6:02 PM TECHNICAL PLANNER Gender Identity Male 07/24/2022 7:51 PM CDT Sexual Orientation Straight 07/24/2022 7: 51 PM CDT documented as of this encounter Procedure Notes * Brenda Louise Au.D., MDavina. - 02/28/2024 12:29 PM CST SUBJECTIVE CHIEF COMPLAINT / REASON FOR VISIT Audiological evaluation prior to visit with ENT Right sided tympanic membrane perforation Otalgia and otorrhea right noted when he has an ear infection, notes he has been having more recurrent ear infections; last one he believes was a couple of months ago. HISTORY OF PRESENT COMPLAINT Ronaldo Mercado is a 68 year old patient being seen for audiological evaluation prior to a visit with ENT. He reports a right sided sudden hearing loss 3-4 years ago which was treated with intratympanic steroid injections. He did not notice any improvement in his hearing. Since his injections, he has had recurrent ear infections. 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 He denies vertigo and left sided hearing concerns. OBJECTIVE See Audiological Evaluation Form. ASSESSMENT/PLAN ?? Right: mild to moderate mixed hearing loss 0.25-8 kHz. Word recognition was 100%. Tympanometry demonstrates no measurable compliance with large ear canal volume (Type B). ?? Left: normal hearing sensitivity through 2 kHz, mild sloping to moderate sensorineural hearing loss. Word recognition was 100%. Tympanometry demonstrates normal ear canal volume, middle ear pressure, and compliance (Type A). CARE PLAN Continue to visit with ENT as scheduled. Recheck hearing per medical team recommendation NICAL PLANNER NICAL PLANNER documented in this encounter Plan of Treatment Not on file documented as of this encounter Procedures Procedure Name Priority Date/Time Associated Diagnosis Comments OTOLARYNGOLOGY REFERRAL Routine 02/28/20 12:00 AM TECHNICAL PLANNER Perforation Tympanic Membrane Right documented in this encounter Results * Otolaryngology Referral (02/28/2024 12:00 AM TECHNICAL PLANNER) 02/28/2024 us Steven Li M.D. 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
--- OUTSIDE RECORDS SUMMARY | 2024-03-23 13:18 | XMS_ITS | Clinical Summary ---
Author Organization [facility] Address [place], [place] [address] Care Team Providers Care Dry Drug Worker Name Role Phone Pcp, No Primary Care Provider Unavailabl e Pcp, No Unavailable Unavailable Social History Tobacco Use Types Packs/Day Years Used Date Smoking Tobacco: Never Assessed Sex and Gender Information Value Date Recorded Sex Assigned at Not on file Legal Sex Male 6:25 PM SHED HAND Gender Identity Not on file Sexual Orientation Not on file Last Filed Vital Signs Vital Sign Reading Time Taken Comments Blood Pressure 139/84 08/09/2013 8:14 AM CDT Pulse 59 08/09/2013 8:14 AM CDT Temperature - - Respiratory Rate - - Oxygen Saturation - - Inhaled Oxygen Concentration - - Weight - - Height - - Body Mass Index - - Plan of Treatment Health Maintenance Due Date Last Done Comments Tdap 1964 Depression screening for age 12+ 1965 BMI (ht and wt on same day) for age 18+ 10/09/1971 Hepatitis C screening for age 18-79 10/09/1971 Tetanus booster 1973 Colonoscopy through age 75 1998 Lipids for age 45-75 1998 Zoster (shingles) series for age 50+ (1 of 2) 10/09/19 04 Pneumococcal series for age 65+ (1 of 1 - PCV) 019 COVID-19 vaccine series (2023- season) 4 Influenza for age 65+ 12/17/2023 Care Teams Dry Drug Worker Relationship Specialty Start Date End Date Pcp, No . PCP - General 07/26/13 Pcp, No . 07/26/13
--- OUTSIDE RECORDS SUMMARY | 2024-03-23 13:18 | XMS_ITS | Encounter Summary ---
Author Organization [facility] Address [address] [place] [address] Care Team Providers Care Guidance Secretary Name Role Phone Elsewhere, Pcp Primary Care Provider Unavailabl e Reason for Visit * Outpatient (Routine) - Closed Specialty Diagnoses / Procedures Referred By Ryland t Referred To Contact Otorhinolaryngology Diagnoses Perforation Tympanic Membrane Bilateral Steven Li M.D. [address] [place] [address] Phone: tel: fax: [facility] Referral ID Status Reason Start Date Expiration Date Visits Re quested Visits Authorized [id number] Closed 11/23/2023 05/24/2025 1 1 Encounter Details Date Type Department Care Team (Latest Contact Info) Description 02/28/2024 2:00 PM WEAVING LOOM OPERATOR Comprehensive Visit Department of Otorhinolaryngology in [place], [place] [address] [place] [address] Yaron Kilpatrick M.D. 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 More than 4 times per year 07/24/2022 Do you belong to any clubs o r organizations such as worship groups, unions, fraternal or athletic groups, or [...] and heating? Not hard at all 07/24/2022 [facility] [place] of Occupat ional Health - Occupational Stress [...] your living situation today? [facility] place [facility] live 02/22/2024 Education Answer Date Recorded What is the highest level of school you have completed or the highest degree you have received? Bachelor's degree (e.g., BA, AB, BS) 07/24/2022 Sex and Gender Information Value Date Recorded Sex Assigned at Male 07/24/2022 7:51 PM CDT Legal Sex Male 6:02 PM WEAVING LOOM OPERATOR Gender Identity Male 07/24/2022 7:51 PM CDT Sexual Orientation Straight 07/24/2022 7: 51 PM CDT documented as of this encounter Consult Notes * Twyla Self, MPAS, P.A.-C. - 02/28/2024 2:00 PM CST Images from the original note were not included. SUBJECTIVE CHIEF COMPLAINT / REASON FOR VISIT Right tympanic membrane perforation HISTORY OF PRESENT ILLNESS Ronaldo Mercado is a 68 y.o. male with a history of rising sensorineural hearing loss 3-4 days ago treated with a series of intratympanic dexamethasone injections. He reports no change in hearing following this therapy, however, he has been left with the persistent right tympanic membrane perforation. He notes associated aural fullness and hearing loss. In the past year, he was noted 2 right ear infections presenting his otorrhea and otalgia. Infections were treated with oral antibiotics, due to persistent symptoms following oral therapies in December, he was placed on neomycin polymyxin B drops. He denies continued otorrhea or otalgia. He currently notes right-sided aural fullness, hearing loss, and frequent crackling and popping of the ear. He reports dry ear precautions. No dizziness or vertigo. He notes rare right-sided nonpulsatile tinnitus. He presents today for consideration of tympanoplasty noting goals of improved hearing and reduced infection frequency. Social History Tobacco Use Smoking status: Former Types: Cigarettes Smokeless tobacco: Former ALLERGIES: Allergies Allergen Reactions Tree And Shrub Pollen Wheezing (Reselect Reaction) CURRENT MEDICATIONS: Current Outpatient Medications: albuterol 90 mcg/actuation inhaler, Inhale 1 puff as needed., Disp: , Rfl: atorvastatin (LIPITOR) 10 mg tablet, Take 10 mg by mouth daily., Disp: , Rfl: cholecalciferol, vitamin D3, 25 mcg (1,000 Unit) tablet, Take 1 tablet by mouth daily., Disp: , Rfl: Eliquis 5 mg tablet, Take 1 tablet (5 mg total) by mouth 2 (two) times a day., Disp: 180 tablet, Rfl: 3 flaxseed oiL 1,000 mg capsule, Take 1 capsule by mouth daily., Disp: , Rfl: fluticasone propionate (FLOVENT HFA) 110 mcg/actuation inhaler, Inhale 1 puff as needed., Disp: , Rfl: hydroCHLOROthiazide (HYDRODIURIL) 12.5 mg tablet, Take 12.5 mg by mouth every morning. for hypertension, Disp: , Rfl: LORazepam (ATIVAN) 0.5 mg tablet, Take 0.5 mg by mouth as needed., Disp: , Rfl: losartan (COZAAR) 100 mg tablet, Take 100 mg by mouth daily. for hypertension, Disp: , Rfl: magnesium oxide (MAG-OX) 400 mg (241.3 mg magnesium) tablet, Take 400 mg by mouth daily., Disp: , Rfl: metoprolol succinate (TOPROL-XL) 25 mg 24 hr tablet, Take 3 tablets (75 mg total) by mouth daily., Disp: 270 tablet, Rfl: 3 montelukast (SINGULAIR) 10 mg tablet, Take 10 mg by mouth as needed., Disp: , Rfl: nitroglycerin (NITROSTAT) 0.4 mg SL tablet, as needed., Disp: , Rfl: omega 7-qiz-hwu-fish oil 1,000 mg (120 mg-180 mg) capsule, Take 1 capsule by mouth daily., Disp: , Rfl: omeprazole (PriLOSEC) [address] capsule, Take 40 mg by mouth daily. for gerd, Disp: , Rfl: PAST MEDICAL HISTORY: Past Medical History: Diagnosis Date Anxiety Generalized Disorder 1988 Asthma NOS 2010 Atrial Fibrillation Unspecified (HCC) 2009 Dermatitis 2022 Gastroesophageal Reflux Disease NOS 2018 Hyperlipidemia 2015 Hypertension NOS 2004 Melanoma Skin (HCC) 2021 Sleep Apnea 2009 SURGICAL HISTORY: Past Surgical History: Procedure Laterality Date JOINT REPLACEMENT 2020 TONSILLECTOMY 1958 VASECTOMY 1989 SOCIAL HISTORY: Social History Socioeconomic History Marital status: Spouse name: Not on file Number of children: Not on file Years of education: Not on file Highest education level: Bachelor's degree (e.g., BA, AB, BS) Occupational History Not on file Tobacco Use Smoking status: Former Types: Cigarettes Smokeless tobacco: Former Substance and Sexual Activity Alcohol use: Yes Alcohol/week: 20.0 standard drinks of alcohol Types: 20 Glasses of wine per week Drug use: Never Sexual activity: Yes Partners: Female control/protection: Vasectomy Other Topics Concern Not on file Social History Narrative Not on file Social Drivers of Health Food Insecurity: No Food Insecurity (02/22/2024) Hunger Vital Sign Worried About Running Out of Food in the Last Year: Never true Ran Out of Food in the Last Year: Never true Transportation Needs: No Transportation Needs (02/22/2024) PRAPARE - Transportation Lack of Transportation (Medical): No Lack of Transportation (Non-Medical): No Physical Activity: Sufficiently Active (02/22/2024) Exercise Vital Sign Days of Exercise per Week: 5 days Minutes of Exercise per Session: 30 min Intimate Partner Violence: Not At Risk (07/24/2022) Humiliation, Afraid, Rape, and Kick questionnaire Fear of Current or Ex-Partner: No Emotionally Abused: No Physically Abused: No Sexually Abused: No Housing Stability: Low Risk (02/22/2024) Housing Stability Housing: Living Situation: I have a steady place to live FAMILY HISTORY: Family History Problem Relation Name Age of Onset Breast cancer Mother Yolie Mercado Also had CLL Dementia Mother Yolie Mercado Prostate cancer Father Brent Mercado Coronary artery disease Father Brent Mercado Stroke Father Brent Mercado Other cancer Mother's Brother Hamzah Yip CLL Other cancer Brother Suhail Mercado CLL He and my mother both had it Other cancer Sister Cassandra Mercado B-stage lymphoma Rheum arthritis Sister Cassandra Mercado REVIEW OF SYSTEMS 10 point review of systems reviewed with patient and noncontributory other than in HPI. OBJECTIVE PHYSICAL EXAM General: Well appearing in no acute distress. Head: Normocephalic, atraumatic. Eyes: Extraocular eye movements intact bilaterally. Ears: Bilateral external ears without masses or lesions. Bilateral ears examined under otomicroscopy. Right Ear: Externally normal in appearance. External auditory canal partially occluded by cerumen. Tympanic membrane with posterior 15% tympanic membrane perforation with small, 5%, slit-like perforation just anterior. No evidence of effusion/infection. Left Ear: Externally normal in appearance. External auditory canal occluded by cerumen, removed with curette. Tympanic membrane intact without perforation, retraction, bulging, or evidence of effusion/infection. Respiratory: Unlabored respirations. Psych: Appropriate mood and affect. DIAGNOSTICS: Audiogram 02/28/2024: Right: mild to moderate mixed hearing loss 0.25-8 kHz. Word recognition was 100%. Tympanometry demonstrates no measurable compliance with large ear canal volume (Type B). Left: normal hearing sensitivity through 2 kHz, mild sloping to moderate sensorineural hearing loss. Word recognition was 100%. Tympanometry demonstrates normal ear canal volume, middle ear pressure,and compliance (Type A). 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 Mercado today. He presents regarding a persistent right tympanic membrane perforation in the setting of previous intratympanic dexamethasone injections for right sudden sensorineural hearing loss 3 to 4 years ago. He reports 2 treated infections in the past year and is currently utilizing dry ear precautions. We discussed goals of tympanoplasty including improved hearing, reduced infection burden, and discontinuation of dry ear precautions. Due to location of theperforation and canal diameter, we discussed a transcanal tympanoplasty approach. We discussed an 85% likelihood of closing the perforation with tympanoplasty. Given the small air bone gap, we discussed 50% likelihood of noticeable hearing improvement. We reviewed associated surgical risks including 15% persistent/recurrent perforation, 1% worsened hearing, 1% facial nerve palsy, and 5% significant dizziness. We discussed postoperative restrictions including a three-week activity in 20 lb weightlifting restriction, 1-2 months of dry ear precautions, and 6 week restriction on flying. His history is significant for obstructive sleep apnea on CPAP. If able, we would like him to withhold CPAP for 3 nights following surgery. Additionally he was on Eliquis for atrial fibrillation, and would need to come off this medication for surgery. He then may restart the medication the day after surgery.Due to patient concern of stroke risk off anticoagulation, we discussed a referral to thrombophiliaclinic for consideration of bridging prior to surgery. After discussion, Mr. Mercado we would like to further consider his options. Our contact information was provided should he like to proceed with surgical intervention. All questions were entertained to the best of our ability. Patient expressed understanding and agreement with this treatment plan. ING LOOM OPERATOR documented in this encounter Plan of Treatment Not on file documented as of this encounter Procedures Procedure Name Priority Date/Time Associated Diagnosis Comments OTOLARYNGOLOGY REFERRAL Routine 02/28/20 12:00 AM WEAVING LOOM OPERATOR Perforation Tympanic Membrane Right documented in this encounter Results * Otolaryngology Referral (02/28/2024 12:00 AM WEAVING LOOM OPERATOR) 02/28/2024 Steven Li M.D. 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
== END 2024-03-19 07:51 | disposition home or self-care (01) ==
LOC: NFLDREF 03-23 13:15
PROVIDERS: PCP Internal Medicine; Referring Provider Internal Medicine; Visit Provider Internal Medicine
DX: E78.5 Hyperlipidemia, unspecified (principal); I10 Essential (primary) hypertension; Z12.5 Encounter for screening for malignant neoplasm of prostate; E66.01 Morbid (severe) obesity due to excess calories
CPT/HCPCS: 80053; 80061; G0103

== ENCOUNTER 2024-12-24 08:49 | Outpatient (CLI) | payer MEDICARE, BC, SELFPAY | END 2024-12-24 08:50 | disposition home or self-care (01) | LOC: NFLDREF 12-28 17:50 | PROVIDERS: PCP Internal Medicine; Referring Provider Internal Medicine; Visit Provider Physician Assistant | DX: N39.0 Urinary tract infection, site not specified (principal) | CPT/HCPCS: 87086 ==

== ENCOUNTER 2025-03-24 08:03 | Outpatient (CLI) | payer MEDICARE, BC, SELFPAY | END 2025-03-24 08:04 | disposition home or self-care (01) | LOC: NFLDREF 03-27 16:49 | PROVIDERS: PCP Internal Medicine; Referring Provider Internal Medicine; Visit Provider Internal Medicine | DX: E78.5 Hyperlipidemia, unspecified (principal); I10 Essential (primary) hypertension; Z13.9 Encounter for screening, unspecified | CPT/HCPCS: 80053; 80061; G0103 ==